=== PATIENT | male | born 1990 | race Caucasian/White ===

== ENCOUNTER 2018-12-23 21:53 | Emergency (ER) | payer OTHER ==
[2018-12-23] MEDS ORDERED: KETOROLAC 30 MG/ML INJ ONE (22:16)
[2018-12-23 22:26] LABS: Absolute Lymphocytes (CBC) 2.7 K/uL (0.7-4.9); Absolute Monocytes 0.5 K/uL (0.1-1.3); Absolute Neutrophil 2.8 K/uL (1.8-8.0); Basophils % 0.6 % (0-1.3); Eosinophils % 1.6 % (0-4.4); Hematocrit 47.3 % (39.6-49.0); Lymphocytes % 44.3 % (15.3-44.8); Monocytes % 7.7 % (3.3-12.3); RBC Red Blood Cell Count 5.67 M/uL (4.33-5.43)
[2018-12-23] MEDS ORDERED: ONDANSETRON 4 MG/2 ML VIAL ONE (22:35)
[2018-12-23] MEDS ORDERED: MORPHINE 4 MG/ML SYR ONE ×2 (22:35→23:22)
[2018-12-23 22:44] LABS: Albumin 4.7 g/dL (3.4-5.0); Bilirubin Direct 0.2 mg/dL (0-0.2); Bilirubin Total 0.6 mg/dL (0.2-1.0); Potassium 3.6 mmol/L (3.5-5.1); Protein, Total 7.9 g/dL (6.4-8.2)
[2018-12-24] MEDS ORDERED: HYDROMORPHONE HCL 1 MG/ML INJ ONE (00:17)
[2018-12-24] MEDS ORDERED: TAMSULOSIN 0.4 MG SR CAP ONE (00:17)
--- NOTE | 2018-12-24 01:07 | ER ---
Nurse's Notes [facility] Name: Drew Shin Age: 28 yrs Sex: Male : 1990 Arrival Date: 12/23/2018 Time: 21:56 Bed 23 Private MD: Diagnosis: Hydronephrosis with renal and ureteral calculous obstruction Presentation: 12/23 22:00 Presenting complaint: Patient states: Sudden onset right flank/back pain. having some la1 pain during the day but not as bad. Transition of care: patient was not received from another setting of care. Onset of symptoms was December 23, 2018. Risk Assessment: Do you want to hurt yourself or someone else? Patient reports no desire to harm self or others. Initial Sepsis Screen: Does the patient meet any 2 criteria? No. Patient's initial sepsis screen is negative. Does the patient have a suspected source of infection? No. Patient's initial sepsis screen is negative. Care prior to arrival: None. 22:00 Method Of Arrival: Ambulatory la1 22:00 Acuity: JANNETH 3 la1 Historical: - Allergies: 22:01 No Known Allergies; la1 - PMHx: 22:01 None; la1 - Immunization history:: Adult Immunizations up to date. - Social history:: Smoking status: Patient/guardian denies using tobacco. - Ebola Screening: : No symptoms or risks identified at this time. Screenin:15 Abuse screen: Denies threats or abuse. Nutritional screening: No deficits noted. tl3 Tuberculosis screening: No symptoms or risk factors identified. Fall Risk None identified. Assessment: 22:15 General: Appears distressed, uncomfortable, slender, well groomed, well developed, well tl3 nourished, Behavior is anxious. Pain: Complains of pain in right flank. Neuro: Level of Consciousness is awake, alert, obeys commands, Oriented to person, place, time, situation, Appropriate for age. Cardiovascular: Patient's skin is warm and dry. Respiratory: Airway is patent Respiratory effort is even, labored, Respiratory pattern is regular, symmetrical. GI: No signs and/or symptoms were reported involving the gastrointestinal system. : Reports pain in right flank(s), urinary frequency. EENT: No signs and/or symptoms were reported regarding the EENT system. Derm: No signs and/or symptoms reported regarding the dermatologic system. Musculoskeletal: No signs and/or symptoms reported regarding the musculoskeletal system. 23:43 Reassessment: Patient appears in no apparent distress at this time. Patient and/or tl3 family updated on plan of care and expected duration. Pain level reassessed. Patient is alert, oriented x 3, equal unlabored respirations, skin warm/dry/pink. 12/24 00:12 Reassessment: Patient and/or family updated on plan of care and expected duration. Pain tl3 level reassessed. Patient is alert, oriented x 3, equal unlabored respirations, skin warm/dry/pink. Cam spoke with pt about CT results, pt still in pain, new orders received. 01:20 Reassessment: patient vomited after i gave the medicine. for discharge once relieved mg2 from pain. Vital Signs: 12/23 22:01 BP 143 / 87; Pulse 101; Resp 18; Temp 97.8; Pulse Ox 98% on R/A; Weight 65.77 kg; la1 Height 6 ft. 3 in. (190.50 cm); 23:43 BP 121 / 72; Pulse 110; Resp 18; Pulse Ox 97% on R/A; tl3 12/24 00:12 BP 140 / 86; Pulse 87; Resp 20; Pulse Ox 100% on R/A; tl3 01:51 BP 132 / 78; Pulse 80; Resp 18; Pulse Ox 100% on R/A; Pain 0/10; mg2 12/23 22:01 Body Mass Index 18.12 (65.77 kg, 190.50 cm) la1 ED Course: 12/23 21:56 Patient arrived in ED. am2 22:01 Triage completed. la1 22:02 Arm band placed on left wrist. la1 22:03 Cam Esteban PA is PHCP. jr8 22:03 Valeriy Malik MD is Attending Physician. jr8 22:15 Amanda Nath, MIRTA is Primary Nurse. tl3 22:15 Patient has correct armband on for positive identification. Bed in low position. Call tl3 light in reach. Adult w/ patient. 22:15 No provider procedures requiring assistance completed. Initial lab(s) drawn, by nh, tl3 sent to lab. Inserted saline lock: 20 gauge in right upper arm, using aseptic technique. Blood collected. 22:43 CT completed. Patient tolerated procedure well. Patient moved back from CT. mw3 23:[address] In Process Unspecified. EDMS 12/24 01:06 Tristian Davis MD is Referral Physician. jr8 01:52 IV discontinued, intact, bleeding controlled, No redness/swelling at site. Pressure mg2 dressing applied. Administered Medications: 12/23 22:18 Drug: TORadol 30 mg Route: IVP; Infused Over: 2 mins; Site: right upper arm; tl3 22:32 Follow up: Response: Pain is unchanged, physician notified tl3 22:31 Drug: morphine 4 mg Route: IVP; Infused Over: 2 mins; Site: right upper arm; tl3 22:33 Follow up: Response: Pain is decreased tl3 22:31 Drug: Zofran 4 mg Route: IVP; Infused Over: 2 mins; Site: right upper arm; tl3 22:32 Follow up: Response: Pain is decreased tl3 23:42 Drug: morphine 4 mg Route: IVP; Infused Over: 2 mins; Site: right upper arm; tl3 23:42 Follow up: Response: Pain is decreased tl3 02 00:10 Drug: Flomax 0.4 mg Route: PO; mg2 01:52 Follow up: Response: No adverse reaction; Marked relief of symptoms mg2 00:10 Drug: Dilaudid 1 mg Route: IVP; Site: right antecubital; mg2 01:51 Follow up: Response: No adverse reaction; Marked relief of symptoms mg2 01:19 Drug: Demerol 50 mg Route: IVP; Site: right antecubital; mg2 01:51 Follow up: Response: No adverse reaction; Marked relief of symptoms mg2 01:19 Drug: Promethazine 12.5 mg Route: IVP; Site: right antecubital; mg2 01:51 Follow up: Response: No adverse reaction; Marked relief of symptoms mg2 Outcome: 01:06 Discharge ordered by . jr8 01:52 Discharged to home ambulatory, with family. mg2 01:52 Condition: improved 01:52 Discharge instructions given to patient, family, Instructed on discharge instructions, follow up and referral plans. medication usage, Demonstrated understanding of instructions, follow-up care, medications, Prescriptions given X 2. 01:52 Patient left the ED. mg2 Signatures: Dispatcher [employer] EDWY Cam Esteban PA PA jr8 Yung Dias RN RN la1 Sarah Munoz am2 Amanda Nath, RN RN tl3 Tae Foy RN RN mg2 Sylvia Peck 3
--- NOTE | 2018-12-24 01:07 | EDPHYS ---
Physician Documentation [facility] Name: Drew Shin Age: 28 yrs Sex: Male : 1990 Arrival Date: 12/23/2018 Time: 21:56 Bed 23 Private MD: ED Physician Valeriy Malik HPI: 12/23 22:42 This 28 yrs old Male presents to ER via Ambulatory with complaints of Flank jr8 Pain, Back Pain. 22:42 The patient complains of pain in the right flank. The pain does not radiate. Onset: The jr8 symptoms/episode began/occurred acutely, today. Modifying factors: The symptoms are alleviated by nothing. the symptoms are aggravated by nothing. Associated signs and symptoms: Pertinent positives: dysuria. Severity of pain: At its worst the pain was moderate in the emergency department the pain is unchanged. The patient has not experienced similar symptoms in the past. The patient has not recently seen a physician. Historical: - Allergies: 22:01 No Known Allergies; la1 - PMHx: 22:01 None; la1 - Immunization history:: Adult Immunizations up to date. - Social history:: Smoking status: Patient/guardian denies using tobacco. - Ebola Screening: : No symptoms or risks identified at this time. ROS: 22:42 Eyes: Negative for injury, pain, redness, and discharge, ENT: Negative for injury, jr8 pain, and discharge, Neck: Negative for injury, pain, and swelling, Cardiovascular: Negative for chest pain, palpitations, and edema, Respiratory: Negative for shortness of breath, cough, wheezing, and pleuritic chest pain, Abdomen/GI: Negative for abdominal pain, nausea, vomiting, diarrhea, and constipation, MS/Extremity: Negative for injury and deformity, Skin: Negative for injury, rash, and discoloration, Neuro: Negative for headache, weakness, numbness, tingling, and seizure. 22:42 Back: Positive for flank pain, on the right. Exam: 22:42 Eyes: Pupils equal round and reactive to light, extra-ocular motions intact. Lids and jr8 lashes normal. Conjunctiva and sclera are non-icteric and not injected. Cornea within normal limits. Periorbital areas with no swelling, redness, or edema. ENT: Nares patent. No nasal discharge, no septal abnormalities noted. Tympanic membranes are normal and external auditory canals are clear. Oropharynx with no redness, swelling, or masses, exudates, or evidence of obstruction, uvula midline. Mucous membranes moist. Neck: Trachea midline, no thyromegaly or masses palpated, and no cervical lymphadenopathy. Supple, full range of motion without nuchal rigidity, or vertebral point tenderness. No Meningismus. Cardiovascular: Regular rate and rhythm with a normal S1 and S2. No gallops, murmurs, or rubs. Normal PMI, no JVD. No pulse deficits. Respiratory: Lungs have equal breath sounds bilaterally, clear to auscultation and percussion. No rales, rhonchi or wheezes noted. No increased work of breathing, no retractions or nasal flaring. Abdomen/GI: Soft, non-tender, with normal bowel sounds. No distension or tympany. No guarding or rebound. No evidence of tenderness throughout. Skin: Warm, dry with normal turgor. Normal color with no rashes, no lesions, and no evidence of cellulitis. MS/ Extremity: Pulses equal, no cyanosis. Neurovascular intact. Full, normal range of motion. Neuro: Awake and alert, GCS 15, oriented to person, place, time, and situation. Cranial nerves II-XII grossly intact. Motor strength 5/5 in all extremities. Sensory grossly intact. Cerebellar exam normal. Normal gait. 22:42 Back: pain, that is moderate, of the right flank, ROM is normal, normal spinal alignment noted, CVA tenderness, that is moderate, is noted on the right, muscle spasm, is not present. Vital Signs: 22:01 BP 143 / 87; Pulse 101; Resp 18; Temp 97.8; Pulse Ox 98% on R/A; Weight 65.77 kg; la1 Height 6 ft. 3 in. (190.50 cm); 23:43 BP 121 / 72; Pulse 110; Resp 18; Pulse Ox 97% on R/A; tl3 03 00:12 BP 140 / 86; Pulse 87; Resp 20; Pulse Ox 100% on R/A; tl3 01:51 BP 132 / 78; Pulse 80; Resp 18; Pulse Ox 100% on R/A; Pain 0/10; mg2 12/23 22:01 Body Mass Index 18.12 (65.77 kg, 190.50 cm) la1 MDM: 12/23 22:03 Patient medically screened. jr8 12/24 00:06 Data reviewed: vital signs, nurses notes, lab test result(s), radiologic studies, CT jr8 scan. Data interpreted: Pulse oximetry: on room air is 97 %. Interpretation: normal. Counseling: I had a detailed discussion with the patient and/or guardian regarding: the historical points, exam findings, and any diagnostic results supporting the discharge/admit diagnosis, lab results, radiology results, the need for outpatient follow up, a urologist, to return to the emergency department if symptoms worsen or persist or if there are any questions or concerns that arise at home. ED course: Patient will do fine for a while after being medicated but once it wears off goes back to 10 out of 10 pain. Will try dilaudid and flomax . 01:05 Response to treatment: the patient's symptoms have mildly improved after treatment. ED jr8 course: Patient feeling well enough to go home. Would come back if worse . 12/23 22:03 Order name: Basic Metabolic Panel; Complete Time: 22:53 jr8 12/23 22:03 Order name: CBC with Diff; Complete Time: 22:41 jr8 12/23 22:03 Order name: Creatinine for Radiology; Complete Time: 22:53 jr8 12/23 22:03 Order name: Hepatic Function; Complete Time: 22:53 jr8 12/23 22:03 Order name: Lipase; Complete Time: 22:53 jr8 12/23 22:03 Order name: Stone Protocol CT jr8 12/23 22:03 Order name: IV Saline Lock; Complete Time: 22:19 jr8 12/23 22:03 Order name: Labs collected and sent; Complete Time: 22:19 jr8 Administered Medications: 12/23 22:18 Drug: TORadol 30 mg Route: IVP; Infused Over: 2 mins; Site: right upper arm; tl3 22:32 Follow up: Response: Pain is unchanged, physician notified tl3 22:31 Drug: morphine 4 mg Route: IVP; Infused Over: 2 mins; Site: right upper arm; tl3 22:33 Follow up: Response: Pain is decreased tl3 22:31 Drug: Zofran 4 mg Route: IVP; Infused Over: 2 mins; Site: right upper arm; tl3 22:32 Follow up: Response: Pain is decreased tl3 23:42 Drug: morphine 4 mg Route: IVP; Infused Over: 2 mins; Site: right upper arm; tl3 23:42 Follow up: Response: Pain is decreased tl3 12/24 00:10 Drug: Flomax 0.4 mg Route: PO; mg2 01:52 Follow up: Response: No adverse reaction; Marked relief of symptoms mg2 00:10 Drug: Dilaudid 1 mg Route: IVP; Site: right antecubital; mg2 01:51 Follow up: Response: No adverse reaction; Marked relief of symptoms mg2 01:19 Drug: Demerol 50 mg Route: IVP; Site: right antecubital; mg2 01:51 Follow up: Response: No adverse reaction; Marked relief of symptoms mg2 01:19 Drug: Promethazine 12.5 mg Route: IVP; Site: right antecubital; mg2 01:51 Follow up: Response: No adverse reaction; Marked relief of symptoms mg2 Disposition: 20:17 Co-signature as Attending Physician, Valeriy Malik MD. Disposition: 12/24/18 01:06 Discharged to Home. Impression: Hydronephrosis with renal and ureteral calculous obstruction. - Condition is Stable. - Discharge Instructions: Kidney Stones, Hydronephrosis. - Prescriptions for Tylenol- Codeine #3 300-30 mg Oral Tablet - take 2 tablets by ORAL route every 6 hours As needed; 20 tablet. Flomax 0.4 mg Oral Capsule, Sust. Release 24 hr - take 1 capsule by ORAL route once daily 1/2 hour following the same meal each day; 30 capsule. - Medication Reconciliation Form, Thank You Letter, Antibiotic Education, Prescription Opioid Use form. - Follow up: Tristian Davis MD; When: 2 - 3 days; Reason: Recheck today's complaints, Continuance of care, Re-evaluation by your physician. - Problem is new. - Symptoms have improved. Signatures: Dispatcher [employer] EDMS Cam Esteban PA PA jr8 Yung Dias RN RN la1 Valeriy Malik MD MD Amanda Nath RN RN tl3 Tae Foy RN RN mg2 Corrections: (The following items were deleted from the chart) 01:52 01:06 12/24/2018 01:06 Discharged to Home. Impression: Hydronephrosis with renal and mg2 ureteral calculous obstruction. Condition is Stable. Forms are Medication Reconciliation Form, Thank You Letter, Antibiotic Education, Prescription Opioid Use. Follow up: Tristian Davis; When: 2 - 3 days; Reason: Recheck today's complaints, Continuance of care, Re-evaluation by your physician. Problem is new. Symptoms have improved. jr8
[2018-12-24] MEDS ORDERED: MEPERIDINE HCL 50 MG/ML AMP ONE (01:22)
[2018-12-24] MEDS ORDERED: PROMETHAZINE 25 MG/ML VIAL ONE (01:22)
--- NOTE | 2018-12-25 10:07 | RAD REPORT ---
EXAM DESCRIPTION: Stone Protocol CLINICAL HISTORY: 28 years male FLANK PAIN. COMPARISON: None TECHNIQUE: Images obtained in axial, sagittal, and coronal planes. No oral or intravenous contrast w as administered. This exam was performed according to our departmental dose-optimization program, which includes autom ated exposure control, adjustment of the mA and/or kV according to patient size and/or less of iterat kalen reconstruction technique. FINDINGS: 2 mm calculus distal right ureter with associated mild right hydronephrosis and hydrourete r. Additional punctate nonobstructing calcification superior right kidney. No obstructing renal calcifications on the left. No hydronephrosis on the left. Unremarkable bladder. No abnormality involving the liver, pancreas, gallbladder or adrenal glands bilaterally. Spleen is pr ominent in size measuring 12.4 cm in greatest dimension. Appendix not well identified however no secondary signs for appendicitis. No bowel obstruction, perfo ration, or inflammation. Punctate densities within bowel possibly related to ingested medication. It is known abnormality lower lungs bilaterally. No dilatation of the abdominal aorta. No adenopathy or abnormal fluid collection is seen. IMPRESSION: Punctate calculus distal right ureter just proximal to the ureterovesicular junction. Associated mild right hydronephrosis and hydroureter. Additional punctate nonobstructing calcifications superior right kidney. No additional abnormality is seen. Electronically signed by: Kaylyn eRynoso MD 12/23/2018 11:44 PM GENERAL ACCOUNTING CLERK Due to temporary technical issues with the PACS/Fluency reporting system, reports are being signed by the in house radiologist as a courtesy to ensure prompt reporting. The interpreting radiologist is f ully responsible for the content of the report.
== END 2018-12-24 01:52 | disposition home or self-care (01) ==
LOC: ER 21:53
DX: N13.2 Hydronephrosis with renal and ureteral calculous obstruction (principal)
CPT/HCPCS: 36415; 74176; 76377; 80048; 80076; 83690; 85025; 99284; J1170; J2175; J2405; J2550

== ENCOUNTER 2020-08-19 23:44 | Emergency (ER) | payer BC, SELFPAY ==
--- OUTSIDE RECORDS SUMMARY | 2020-08-19 23:46 | XMS REPORT | Clinical Summary ---
:1990 Author Organization [facility] Address [address] [place] [address] Care Team Providers Name Role Phone Asked, No Pcp Primary Care Provider Unavailable Allergies No Known Active Allergies Medications Not on file Active Problems Not on file Social History Tobacco Use Types Packs/Day Years Used Date Never Smoker Smokeless Tobacco: Never Used Sex Assigned at Date Recorded Not on file Last Filed Vital Signs Not on file Plan of Treatment Health Maintenance Due Date Last Done Comments INFLUENZA VACCINE 06/21/2020 Results Not on fileafter 08/19/2019 Insurance Payer Benefit Plan / Subscriber ID Effective Phone Address T ype Group Dates COMMERCIAL MISC MISC COMMERCIAL [id number] 2018-Prese Commercial nt Advance Directives For more information, please contact: [phone] Type Date Recorded Patient Pediatric Oncologist Explanati on Advance Directives, Living Will and Medical Power of Headend Technician Advance Directives, Living Will 05/28/2019 1:33 PM and Medical Power of Headend Technician Advance Directives, Living Will 05/28/2019 1:44 PM and Medical Power of Headend Technician
--- OUTSIDE RECORDS SUMMARY | 2020-08-19 23:46 | XMS REPORT | Continuity of Care Document ---
:1990 Author Organization [facility] t Address [address] [place] [address] Care Team Providers Name Role Phone Asked, Pcp Primary Care Physician Unavailable Doctor Unassigned, Name Attending Clinician Unavailable Patrick MCMAHON Attending Clinician Problems This patient has no known problems. Allergies, Adverse Reactions, Alerts This patient has no known allergies or adverse reactions. Social History Social Habit Start Date Stop Date Quantity Comments Source Sex Assigned At [facility] ethodist Tobacco use and 2019-05-28 2019-05-28 Never used [facility] ethodist exposure 00:00:00 00:00:00 Smoking Status Start Date Stop Date Source Never smoker [facility] Medications This patient has no known medications. Procedures This patient has no known procedures. Plan of Care Planned Activity Planned Date Details Comments Source Future Scheduled 2020-06-21 INFLUENZA VACCINE Joshua Soriano Test 00:00:00 [code = INFLUENZA VACCINE] Encounters Start End Encounter Admission Attending Care Care Encounter Source Date/Time Date/Time Type Type Clinicians Facility Department ID 2020-06-10 2020-06-10 Orders Doctor GEETHA [id number] 00:00:00 00:00:00 Only Unassigned, DUSTY [id number] [place] [facility] [id number] 2020-06-09 2020-06-09 [facility] [id number] 10:24:29 10:54:29 ne Visit [facility] [id number] [facility] [id number] 2020-04-28 2020-04-28 [facility] [id number] 00:00:00 00:00:00 [facility] [id number] [facility] [id number] Results This patient has no known results.
--- OUTSIDE RECORDS SUMMARY | 2020-08-19 23:47 | XMS REPORT | Summary of Care ---
:1990 Author Organization [facility] - Health Address [address] [place] [address] Care Team Providers Name Role Phone LaverneEriberto Primary Care Provider Encounter Details Date Type Department Care Team Description 06/10/2020 Orders Only [facility] Doctor Unassigned, No [address] [facility] [place] [address] [address] [place] [address] Allergies No Known Allergiesdocumented as of this encounter (statuses as of 06/19/2020) Medications Medication Sig Dispensed Refills Start Date End Date Status dutasteride 0.5 mg Take 1 capsule 0 03/13/2019 Active capsule by mouth daily. [id number] Take 1 tablet 30 tablet 11 01/04/2020 Active v ala (BIKTARVY) by mouth daily. 50-200-25 mg Take on tabletIndications: HIV 50/200/25 mg (human immunodeficiency tablet once virus infection) daily predniSONE 20 mg 2 tabs once 10 tablet 0 06/09/2020 Active tabletIndications: daily x 5 days Allergic reaction to bee sting temazepam 15 mg capsule TK 1 C PO QD HS 0 05/21/2020 Active documented as of this encounter (statuses as of 06/19/2020) Active Problems Problem Noted Date HIV (human immunodeficiency virus infection) 9 documented as of this encounter (statuses as of 06/19/2020) Immunizations Name Administration Dates Next Due Influenza Virus Vaccine 08/02/2019 Pneumococcal 13 Conjugate, PCV13 (Prevnar 13) 03/27/2019 documented as of this encounter Social History Tobacco Use Types Packs/Day Years Used Date Never Smoker Smokeless Tobacco: Never Used Alcohol Use Drinks/Week oz/Week Comments Yes 0 Standard drinks or equivalent 0.0 Sex Assigned at Date Recorded Not on file Job Start Date Occupation Industry Not on file Not on file Not on file Travel History Travel Start Travel End No recent travel history available. documented as of this encounter Last Filed Vital Signs Not on filedocumented in this encounter Plan of Treatment Date Type Specialty Care Team Description 12/15/2020 Office Visit [facility] [address] [place], [place] [address] Health Maintenance Due Date Last Done Comments VARICELLA VACCINES (1 of 2 - 2-dose childhood series) 1991 DTaP,Tdap,and Td Vaccines (1 - Tdap) 2001 PNEUMOCOCCAL 0-64 YEARS COMBINED SERIES (2 of 3 - 05/22/2019 03/27/2019 PPSV23) INFLUENZA VACCINE (#1) 2020 08/02/2019 Depression Screening 01/04/2021 01/04/2020 documented as of this encounter Procedures Procedure Name Priority Date/Time Associated Diagnosis Comme nts REFERRAL- Routine 06/10/2020 12:01 AM CDT REQUEST/RESPONSE documented in this encounter Results Not on filedocumented in this encounter Insurance Payer Benefit Plan / Subscriber ID Effective Dates Phone Addre ss Type Group BCBS OF HIM BCBS BLUE [id number] 2019-Barrie [phone] [address] [facility] t [id number] [place] [address] documented as of this encounter
--- OUTSIDE RECORDS SUMMARY | 2020-08-19 23:47 | XMS REPORT | Summary of Care ---
:1990 Author Organization [facility] Address [address] [place] [id number] Care Team Providers Name Role Phone Eriberto Galloway Primary Care Provider Reason for Visit Reason Comments HIV Encounter Details Date Type Department Care Team Description 06/09/2020 Telemedicine Visit [facility] Allergi c reaction to Infectious Diseases- PA bee sting (Primary [address] Dx) [facility] [id number] [address] [place] [address] [address] [place], [place] [phone] Allergies No Known Allergiesdocumented as of this encounter (statuses as of 06/09/2020) Medications Medication Sig Dispensed Refills Start Date End Date Status dutasteride 0.5 mg Take 1 0 03/13/2019 Active capsule capsule by mouth daily. jsvftxuwg-clyltprk-fzr Take 1 30 tablet 11 01/04/2020 Active ofov ala (BIKTARVY) tablet by 50-200-25 mg mouth daily. tabletIndications: HIV Take on (human 50/200/25 mg immunodeficiency virus tablet once infection) daily predniSONE 20 mg 2 tabs once 10 tablet 0 06/09/2020 Active tabletIndications: daily x 5 Allergic reaction to days bee sting temazepam 15 mg TK 1 C PO QD 0 05/21/2020 Active capsule HS methylphenidate HCl Take 1 0 03/13/2019 Discontinued (RITALIN LA) 10 mg 24 capsule by 0 hr capsule mouth every morning. eszopiclone (LUNESTA) Take 1 0 03/13/2019 02 Discontinued 3 mg tablet tablet by 0 mouth at bedtime. metoclopramide HCl 10 1 tab every 30 tablet 0 12/16/201906/09 Discontinued mg tabletIndications: 4hr as 0 Vomiting in adult needed for nausea QUEtiapine (SEROQUEL) Take 50 mg 0 02 Discontinued 50 mg tablet by mouth at 0 bedtime. diazePAM 10 mg tablet Take 10 mg 0 02 Discontinued by mouth at 0 bedtime. temazepam 15 mg Take 1 30 capsule 2 06/09/2020 Di scontinued capsule capsule by 0 mouth at bedtime as needed for Insomnia. documented as of this encounter (statuses as of 06/09/2020) Active Problems Problem Noted Date HIV (human immunodeficiency virus infection) 9 documented as of this encounter (statuses as of 06/09/2020) Immunizations Name Administration Dates Next Due Influenza [...] Signs Not on filedocumented in this encounter Progress Notes Reed Nguyen PA - 06/09/2020 4:00 PM CDT TELEHEALTH NOTE Verbal consent obtained from Patient: Drew Shin due to the COVID-19 pandemic for telehealth services provided below. Communication with patient was conducted via Video Call. Location of Patient: Home Location of Provider: Office Date of Service: 06/09/2020 Chief Complaint: HIV scheduled visit HPI: Drew Shin is a 29 year old WM who presents today for a HIV telehealth visit. He states that is very allergic to poison sole and bee sting. Two days ago, he suffered a bee sting on his left lateral knee area and subsequently developed a large area of swelling, redness and warmth x 2 days. D enies having fevers, chills or sweats. In the past, he has received steroid shots in the past for similar reactions. Denies having feeling more SOB than he has been having for the last few months In early January, he developed self limiting cough. At that time he did not have fever, chills, musclecaches, diarrhea, or lost of sense of smell or taste. He developed mild TRAVIS that has improved but has not returned to his baseline. Denies having CP, sore throat, wheezing, edema Albuterol prescribed in the past for similar sx and he has been using it periodically and it has helped He a long h/o of insomnia and has tried multiple medications including trazodone and Seroquel. He has been prescribed temazepam 15 mg - it still takes him a few hours to go to sleep after taking it andmelatonin. Mood is stable. Does not fill anxious. He is not taking any stimulants for ADHD. Avoid caffeine. Hasgood sleep hygiene habits. 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 Denies having sore throat, abd pain, nausea, vomiting, diarrhea, + rash )bee sting), RAHAT, paresthesias, + joint occasionaly TELEHEALTH EXAM Gen: alert, very pleasant, nl speech ENT: without overt scleral icterus Resp: breathing comfortably Laboratory [facility] 04/28/20 HIV-1 RNA quant RT PCR = < 20 copy clerk/ml CD4 = 626 (35%) BUN/[employer] [place] Marshal = 18/1.17 eGFR = 84 ml/min/1.73m2 Glucose = 82 Total bili = 1.6 AST = 16 ALT = 11 ASSESSMENT/ PLAN Drew Shin is a 29 year old male with PMH as above presenting with: 1. HIV+ - he started Biktarvy on 03/13/19. Baseline/pre-tx CD4 and VL were 394 (25%) and 65,037 copy clerk/ml, respectively - continue Biktarvy 2. Sleep disorder - chronic prior to being diagnosed with HIV - continue temazepam 15 mg (prescribed but out side provider) - patient declined referral to [facility] psychiatry due to drive 3. Increase total bilirubin (mild) - possible Gilbert syndrome 4. Healthcare maintenance - HBsAb (+) - Influenza 08/09 - Prevnar 05/09 - offer Pneumovax and TdAP on RTC - on RTC, ask patient if he recalls having Gardasil in the past 5. Adverse reaction to bee sting - skin swelling and erythema - prednisone 40 mg daily x 5 days RTC 6 months A total of 45 minutes was spent on the Video Call, chart review, and coordination of care with specialists. Reed Nguyen PA-C documented in this encounter Plan of Treatment Health Maintenance Due Date Last Done Comments VARICELLA VACCINES (1 of 2 - 2-dose childhood series) 1991 DTaP,Tdap,and Td Vaccines (1 - Tdap) 2001 PNEUMOCOCCAL 0-64 YEARS COMBINED SERIES (2 of 3 - 05/22/2019 03/27/2019 PPSV23) INFLUENZA VACCINE (#1) 2020 08/02/2019 Depression Screening 01/04/2021 01/04/2020 documented as of this encounter Results Not on filedocumented in this encounter Visit Diagnoses Diagnosis Allergic reaction to bee sting - Primary Toxic effect of venom documented in this encounter Insurance Payer Benefit Plan / Subscriber ID Effective Dates Phone Addre ss Type Group BCBS OF HIM BCBS BLUE [id number] 2019-Barrie [phone] [address] [facility] t [id number] [place] [address] documented as of this encounter
[2020-08-20] MEDS ORDERED: FLUORESCEIN SODIUM 1 MG/WRAP ONE (00:08)
[2020-08-20] MEDS ORDERED: TETRACAINE HCL 0.5% 4ML OPTH ONE (00:08)
--- NOTE | 2020-08-20 00:17 | ER ---
Nurse's Notes [facility] Name: Drew Shin Age: 29 yrs Sex: Male : 1990 Arrival Date: 08/19/2020 Time: 23:47 Bed 6 Private MD: Eriberto Galloway Diagnosis: Injury of conjunctiva and corneal abrasion without foreign body, left eye Presentation: 08/19 23:53 Chief complaint: Patient states: Left eye pain, reports while weed-eating a rock or sg piece of debris hit the left eye, reports feels like the eye is scratched. Coronavirus screen: Client denies travel out of the [place] in the last 14 days. At this time, the client does not indicate any symptoms associated with coronavirus-19. Ebola Screen: Patient negative for fever greater than or equal to 101.5 degrees Fahrenheit, and additional compatible Ebola Virus Disease symptoms Patient denies exposure to infectious person. Patient denies travel to an Ebola-affected area in the 21 days before illness onset. No symptoms or risks identified at this time. Mechanism of Injury: No Mechanism of Injury. The patient denies any loss of vision. Initial Sepsis Screen: Does the patient meet any 2 criteria? No. Patient's initial sepsis screen is negative. Risk Assessment: Do you want to hurt yourself or someone else? Patient reports no desire to harm self or others. Onset of symptoms was August 19, 2020. Care prior to arrival: None. Transition of care: patient was not received from another setting of care. 23:53 Method Of Arrival: Ambulatory sg 23:53 Acuity: JANNETH 4 sg 23:53 Initial Sepsis Screen: Does the patient have a suspected source of infection? No. rr5 Patient's initial sepsis screen is negative. Historical: - Allergies: 23:53 No Known Allergies; sg - Home Meds: 23:53 None [Active]; sg - PMHx: 23:53 None; sg - PSHx: 23:53 None; sg - Immunization history:: Adult Immunizations up to date. - Social history:: Smoking status: Patient denies any tobacco usage or history of. Screenin/30 00:04 Abuse screen: Denies threats or abuse. Denies injuries from another. Nutritional rr5 screening: No deficits noted. Tuberculosis screening: No symptoms or risk factors identified. Fall Risk None identified. Total Prieto Fall Scale indicates No Risk (0-24 pts). Assessment: 00:00 General: Appears in no apparent distress. uncomfortable, Behavior is calm, cooperative, rr5 appropriate for age. Pain: Complains of pain in left eye Pain currently is 6 out of 10 on a pain scale. Quality of pain is described as aching, Pain began suddenly, Is intermittent. Neuro: Level of Consciousness is awake, alert, obeys commands, Oriented to person, place, time, situation. Cardiovascular: Capillary refill < 3 seconds Patient's skin is warm and dry. Respiratory: Airway is patent Respiratory effort is even, unlabored, Respiratory pattern is regular, symmetrical. GI: No signs and/or symptoms were reported involving the gastrointestinal system. : No signs and/or symptoms were reported regarding the genitourinary system. EENT: Eyes mild redness. Sclera/Cornea are reddened in outer aspect of conjuctiva of left eye and inner aspect of conjunctiva of left eye Reports pain in left eye. Derm: Skin is intact, is healthy with good turgor, Skin temperature is warm. Musculoskeletal: Circulation, motion, and sensation intact. Capillary refill < 3 seconds. Vital Signs: 08/19 23:53 BP 144 / 88; Pulse 60; Resp 16; Temp 98.5; Pulse Ox 100% ; Weight 65.77 kg; Height 6 rr5 ft. 2 in. (187.96 cm); Pain 6/10; 08/20 00:31 BP 136 / 86; Pulse 70; Resp 18; Temp 98; Pulse Ox 100% on R/A; mg2 08/19 23:53 Body Mass Index 18.62 (65.77 kg, 187.96 cm) rr5 Visual Acuity: 00:00 Left Eye Visual acuity 20/20, ; Right Eye Visual acuity 20/20, ; Both Eyes Visual rr5 acuity 20/20; Without Lenses; ED Course: 08/19 23:47 Patient arrived in ED. am2 23:48 Eriberto Galloway MD is Private Physician. am2 23:50 Jose Vasquez PA is PHCP. cp 23:50 Tremaine Dee MD is Attending Physician. cp 23:51 Tae Foy RN is Primary Nurse. mg2 23:52 Arm band placed on. sg 23:54 Triage completed. sg 23:55 Patient has correct armband on for positive identification. Bed in low position. Call rr5 light in reach. 08/20 00:15 Kaylyn Lomas MD is Referral Physician. cp 00:20 Assist provider with eye exam of left eye. using fluorescein stain, Performed by Jose MCMAHON Patient tolerated well. Patient did not have IV access during this emergency room visit. Administered Medications: 00:05 Drug: Tetracaine Drops 0.5 % 1 drops {Note: given by tay MCMAHON.} Route: Ophthalmic; Site: rr5 left eye; 00:27 Drug: Gentamicin Drops 0.3 % 2 drops Route: Ophthalmic; Site: left eye; mg2 00:27 Follow up: Response: No adverse reaction; Medication administered at discharge. mg2 00:27 Drug: Ibuprofen 800 mg Route: PO; mg2 00:27 Follow up: Response: No adverse reaction; Medication administered at discharge. mg2 00:27 Drug: Tylenol 650 mg Route: PO; mg2 00:27 Follow up: Response: No adverse reaction; Medication administered at discharge. mg2 Outcome: 00:16 Discharge ordered by MD. cp 00:31 Discharged to home ambulatory. mg2 00:31 Condition: stable 00:31 Discharge instructions given to patient, Instructed on discharge instructions, follow up and referral plans. medication usage, Demonstrated understanding of instructions, follow-up care, medications, Prescriptions given X 2. 00:31 Patient left the ED. mg2 Signatures: Dawit Farley RN Jose Pinto PA PA cp Moreno, Amanda am2 Tae Foy RN RN mg2 Eusebio Hunt RN RN rr5
--- NOTE | 2020-08-20 00:17 | EDPHYS ---
Physician Documentation [facility] Name: Drew Shin Age: 29 yrs Sex: Male : 1990 Arrival Date: 08/19/2020 Time: 23:47 Bed 6 Private MD: Eriberto Galloway ED Physician Tremaine Dee HPI: 08/19 23:57 This 29 yrs old Male presents to ER via Ambulatory with complaints of Eye cp Pain. 23:57 The patient is experiencing foreign body sensation, pain, The patient sustained struck cp by rock while using weed eater, to the left eye. Historical: - Allergies: 23:53 No Known Allergies; sg - Home Meds: 23:53 None [Active]; sg - PMHx: 23:53 None; sg - PSHx: 23:53 None; sg - Immunization history:: Adult Immunizations up to date. - Social history:: Smoking status: Patient denies any tobacco usage or history of. ROS: 23:58 Eyes: Positive for foreign body sensation, pain, of the left eye, Negative for cp discharge, vision loss. 23:58 Skin: Negative for rash. 23:58 Neuro: Negative for headache. 23:58 All other systems are negative. Exam: 08/20 00:11 Visual Acuity: I have reviewed the nursing documentation. cp Head/Face: Normocephalic, atraumatic. Constitutional: The patient appears in no acute distress, alert, awake, well developed, well nourished, uncomfortable. Eyes: Periorbital structures: appear normal, Pupils: equal, round, and reactive to light and accomodation, Extraocular movements: intact throughout, Conjunctiva: normal, no exudate, no injection, Corneas: abrasion, that is small, on the left, central location, foreign body, is not appreciated, a fluorescein strip employed to appreciate the findings, Lids and lashes: appear normal, bilaterally, Visual armires: are intact, Examination of the other eye reveals no obvious gross abnormality. ENT: External ear(s): are unremarkable, Nose: is normal, Posterior pharynx: Airway: no evidence of obstruction, patent. Chest/axilla: Inspection: normal. Cardiovascular: Rate: normal. Skin: no rash present. Vital Signs: 08/19 23:53 BP 144 / 88; Pulse 60; Resp 16; Temp 98.5; Pulse Ox 100% ; Weight 65.77 kg; Height 6 rr5 ft. 2 in. (187.96 cm); Pain 6/10; 08/20 00:31 BP 136 / 86; Pulse 70; Resp 18; Temp 98; Pulse Ox 100% on R/A; mg2 08/19 23:53 Body Mass Index 18.62 (65.77 kg, 187.96 cm) rr5 Visual Acuity: 00:00 Left Eye Visual acuity 20/20, ; Right Eye Visual acuity 20/20, ; Both Eyes Visual rr5 acuity 20/20; Without Lenses; MDM: 08/19 23:53 Patient medically screened. cp 08/20 00:14 Differential diagnosis: Corneal abrasion of left eye. Foreign body in left eye. cp Infectious conjunctivitis in left eye. Data reviewed: vital signs, nurses notes. Counseling: I had a detailed discussion with the patient and/or guardian regarding: the historical points, exam findings, and any diagnostic results supporting the discharge/admit diagnosis, the need for outpatient follow up, an opthalmologist, to return to the emergency department if symptoms worsen or persist or if there are any questions or concerns that arise at home. Response to treatment: the patient's symptoms have markedly improved after treatment, and as a result, I will discharge patient. 08/19 23:54 Order name: Visual Acuity; Complete Time: 00:00 cp 08/19 23:54 Order name: Eye Tray; Complete Time: 00:00 cp 08/19 23:54 Order name: Fluoresene Opth strip; Complete Time: 00:00 cp Administered Medications: 00:05 Drug: Tetracaine Drops 0.5 % 1 drops {Note: given by tay MCMAHON.} Route: Ophthalmic; Site: rr5 left eye; 00:27 Drug: Gentamicin Drops 0.3 % 2 drops Route: Ophthalmic; Site: left eye; mg2 00:27 Follow up: Response: No adverse reaction; Medication administered at discharge. mg2 00:27 Drug: Ibuprofen 800 mg Route: PO; mg2 00:27 Follow up: Response: No adverse reaction; Medication administered at discharge. mg2 00:27 Drug: Tylenol 650 mg Route: PO; mg2 00:27 Follow up: Response: No adverse reaction; Medication administered at discharge. mg2 Disposition: 00:18 Chart complete. cp 01:30 Co-signature as Attending Physician, Tremaine Dee MD. rn Disposition: 08/20/20 00:16 Discharged to Home. Impression: Injury of conjunctiva and corneal abrasion without foreign body, left eye. - Condition is Stable. - Discharge Instructions: Corneal Abrasion. - Prescriptions for Gentamicin 0.3 % Ophthalmic Drops - instill 1 drop by OPHTHALMIC route every 4 hours for 7 days instill eye drops while awake as directed; 1 bottle. Ibuprofen 800 mg Oral Tablet - take 1 tablet by ORAL route every 8 hours As needed take with food; 30 tablet. - Medication Reconciliation Form, Thank You Letter, Antibiotic Education, Prescription Opioid Use form. - Follow up: Kaylyn Lomas MD; When: 1 - 2 days; Reason: Recheck today's complaints. - Problem is new. - Symptoms have improved. Signatures: Dawit Farley RN RN Tremaine Funes MD MD rn Jose Vasquez PA PA cp Tae Foy, RN RN mg2 Eusebio Hunt RN RN rr5 Corrections: (The following items were deleted from the chart) 00:31 00:16 08/20/2020 00:16 Discharged to Home. Impression: Injury of conjunctiva and mg2 corneal abrasion without foreign body, left eye. Condition is Stable. Forms are Medication Reconciliation Form, Thank You Letter, Antibiotic Education, Prescription Opioid Use. Follow up: Kaylyn Lomas; When: 1 - 2 days; Reason: Recheck today's complaints. Problem is new. Symptoms have improved. cp
[2020-08-20] MEDS ORDERED: GENTAMICIN 0.3% OPTH DROP 5ML ONE (00:36)
[2020-08-20] MEDS ORDERED: ACETAMINOPHEN 325 MG TABLET ONE (00:36)
[2020-08-20] MEDS ORDERED: IBUPROFEN 400 MG TAB ONE (00:37)
[2020-08-20 00:52] VITALS: O2SAT 100
[2020-08-20 00:54] VITALS: BP 136/86; TEMP 98
== END 2020-08-20 00:31 | disposition home or self-care (01) ==
LOC: ER 23:44
DX: S05.02XA Injury of conjunctiva and corneal abrasion without foreign body, left eye, initial encounter (principal); W22.8XXA Striking against or struck by other objects, initial encounter; Y93.H9 Activity, other involving exterior property and land maintenance, building and construction; Y92.9 Unspecified place or not applicable
CPT/HCPCS: 99283

== ENCOUNTER 2020-09-14 13:51 | Emergency (ER) | payer BC ==
--- OUTSIDE RECORDS SUMMARY | 2020-09-14 13:53 | XMS REPORT | Continuity of Care Document ---
:1990 Author Organization [facility] t Address [address] [place] [address] Care Team Providers Name Role Phone Asked, Pcp Primary Care Physician Unavailable [facility] Attending Clinician Unavailable Doctor Unassigned, Name Attending Clinician Unavailable Patrick MCMAHON Attending Clinician Problems This patient has no known problems. Allergies, Adverse Reactions, Alerts This patient has no known allergies or adverse reactions. Social History Social Habit Start Date Stop Date Quantity Comments Source Sex Assigned At [facility]ist Tobacco use and 2019-05-28 2019-05-28 Never used [facility] exposure 00:00:00 00:00:00 Smoking Status Start Date Stop Date Source Never smoker [facility] Medications This patient has no known medications. Procedures This patient has no known procedures. Plan of Care Planned Activity Planned Date Details Comments Source Future Scheduled 2020-06-21 INFLUENZA VACCINE Joshua Soriano Test 00:00:00 [code = INFLUENZA VACCINE] Encounters Start End Encounter Admission Attending Care Care Encounter Source Date/Time Date/Time Type Type Clinicians Facility Department ID 2020-09-12 2020-09-12 Technical Trainer [facility] [id number] 15:49:25 15:52:33 Visit HEALTH [id number] CLINICS [id number] 2020-09-12 2020-09-12 Orders Doctor INIGUEZ [id number] 00:00:00 00:00:00 Only Unassigned, DUSTY [id number] [facility] [id number] 2020-06-10 2020-06-10 Orders Doctor GEETHA [id number] 00:00:00 00:00:00 Only Unassigned, DUSTY [id number] [facility] [id number] 2020-06-09 2020-06-09 [address] [id number] 10:24:29 10:54:29 ne Visit [facility] [id number] CLINICS [id number] 2020-04-28 2020-04-28 [id number] 00:00:00 00:00:00 [facility] [id number] [place] [id number] Results This patient has no known results.
--- OUTSIDE RECORDS SUMMARY | 2020-09-14 13:53 | XMS REPORT | Summary of Care ---
:1990 Author Organization [facility] Address [address] [place] [address] Care Team Providers Name Role Phone Eriberto Galloway Primary Care Provider Reason for Visit Reason Comments LAB WORK Encounter Details Date Type Department Care Team Description 09/12/2020 Service Electrician Visit [facility], SALOME [place] [address] [facility] [id number] [place] [address] Symptomatic HIV infection; Laboratory - [facility], [facility] Urinary frequency [place] [address] [place] [address] [address] [place] [address] [place] [address] Allergies No Known Allergiesdocumented as of this encounter (statuses as of 09/12/2020) Medications Medication Sig Dispensed Refills Start Date End Date Status dutasteride 0.5 mg Take 1 capsule 0 03/13/2019 Active capsule by mouth daily. fgbfcjyum-opggupcq-mlfeeu Take 1 tablet 30 tablet 11 01/04/2020 [...] as of this encounter (statuses as of 09/12/2020) Active Problems Problem Noted Date HIV (human immunodeficiency virus infection) 9 documented as of this encounter (statuses as of 09/12/2020) Immunizations Name Administration Dates Next Due Influenza Virus Vaccine 08/22/2020, 08/02/2019 Pneumococcal 13 Conjugate, PCV13 (Prevnar 13) 03/27/2019 documented as of this encounter Social History Tobacco Use Types Packs/Day Years Used Date Never Smoker Smokeless Tobacco: Never Used Alcohol Use Drinks/Week oz/Week Comments Yes 0 Standard drinks or equivalent 0.0 Sex Assigned at Date Recorded Not on file COVID-19 Exposure Response Date Recorded In the last month, have you been in contact with No / Unsure 09/12/2020 2:28 PM CDT someone who was confirmed or suspected to have Coronavirus / COVID-19? documented as of this encounter Last Filed Vital Signs Not on filedocumented in this encounter Nursing Notes Princess Chata Morejon - 09/12/2020 4:00 PM CDT Venipuncture collection performed by clean technique on the right anticubitus. Total of 1 attempts were made. Slight pressure and a bandage/dressing were applied to the site(s). The patient experiencedno complications. The following specimens were processed according to instructions and sent to [facility] laboratories per lab order on 09/12/2020: LT BLUE SST 1 RED LAV 1 PPT 1 DK GREEN (LiHep) DK GREEN (SodH) PINEDA DK BLUE (K2) DK BLUE (S) ACD Blood Culture NIPT/NTD Urine cup sent to lab for UA/C Urine/ GC Chlamydia documented in this encounter Plan of Treatment Date Type Specialty Care Team Description 12/15/2020 Office Visit [facility] [address] [place] [id number] Name Type Priority Associated Diagnoses Date/Ti me HIV1 BY REAL-TIME PCR LAB Routine Symptomatic HIV inf ection 09/12/2020 3:57 PM QUANT CDT CBC WITH DIFF LAB Routine Symptomatic HIV infection 1 3:57 PM CDT COMP. METABOLIC PANEL LAB Routine Symptomatic HIV inf ection 09/12/2020 3:57 PM (33150) CDT URINE CULTURE LAB Routine Urinary frequency 0 3:59 PM CDT GC & CHLAMYDIA AMPLIFIED LAB Routine Urinary frequenc y 09/12/2020 3:59 PM ASSAY CDT URINALYSIS LAB Routine Urinary frequency 09/12/2020 3:59 PM CDT PHOSPHORUS LAB Routine Urinary frequency 09/12/2020 3:57 PM CDT URIC ACID LAB Routine Urinary frequency 09/12/2020 3:57 PM CDT Health Maintenance Due Date Last Done Comments VARICELLA VACCINES (1 of 2 - 1991 2-dose childhood series) DTaP,Tdap,and Td Vaccines (1 - 2009 Tdap) PNEUMOCOCCAL 0-64 YEARS COMBINED 05/22/2019 03/27/2019 SERIES (2 of 3 - PPSV23) Depression Screening 01/04/2021 01/04/2020 INFLUENZA VACCINE (#1) 2021 08/02/2019 Postponed from 07/22/2020 (Refused) documented as of this encounter Results Not on filedocumented in this encounter Visit Diagnoses Diagnosis Symptomatic HIV infection Human immunodeficiency virus [HIV] disea se Urinary frequency documented in this encounter Insurance Payer Benefit Plan / Subscriber ID Effective Dates Phone Addre ss Type Group BCBS OF HIM BCBS BLUE [id number] 2019-Barrie [phone] [address] [facility] t [id number] [place] [address] documented as of this encounter
--- OUTSIDE RECORDS SUMMARY | 2020-09-14 13:53 | XMS REPORT | Summary of Care ---
:[address] [facility] - Health Address [address] [place] [address] Care Team Providers Name Role Phone ZaheerramakrishnaEriberto naylor Primary Care Provider Encounter Details Date Type Department Care Team Description 09/12/[address] [facility] Doctor Unassigned, No [address] [facility] [place] [address] [address] [id number] Allergies No Known Allergiesdocumented as of this encounter (statuses as of 09/12/2020) Medications Medication Sig Dispensed Refills Start Date End Date Status dutasteride 0.5 mg Take 1 capsule 0 03/13/2019 Active capsule by mouth daily. zlemmsppj-voslagob-[id number] Take 1 tablet 30 tablet 11 01/04/2020 [...] [facility] [address] [place], [place] [address] Health Maintenance Due Date Last Done Comments VARICELLA VACCINES (1 of 2 - 2-dose childhood series) 1991 DTaP,Tdap,and Td Vaccines (1 - Tdap) 2009 PNEUMOCOCCAL 0-64 YEARS COMBINED SERIES (2 of 3 - 05/22/2019 03/27/2019 PPSV23) INFLUENZA VACCINE (#1) 2020 08/02/2019 Depression Screening 01/04/2021 01/04/2020 documented as of this encounter Procedures Procedure Name Priority Date/Time Associated Diagnosis Comme nts ASSIGNMENT OF BENEFITS Routine 09/12/2020 2:29 PM CDT documented in this encounter Results Not on filedocumented in this encounter Insurance Payer Benefit Plan / Subscriber ID Effective Dates Phone Addre ss Type Group BCBS OF HIM BCBS BLUE [id number] 2019-Barrie [phone] [address] [facility] [id number] [place] [address] documented as of this encounter
--- OUTSIDE RECORDS SUMMARY | 2020-09-14 13:53 | XMS REPORT | Clinical Summary ---
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) Social History Tobacco Use Types Packs/Day Years Used Date Never Smoker Smokeless Tobacco: Never Used Sex Assigned at Date Recorded Not on file Last Filed Vital Signs Not on file Plan of Treatment Health Maintenance Due Date Last Done Comments INFLUENZA VACCINE 06/21/2020 Results Not on fileafter 09/14/2019 Insurance Payer Benefit Plan / Subscriber ID Effective Phone Address T ype Group Dates COMMERCIAL MISC MISC COMMERCIAL [id number] 2018-Prese Commercial nt Advance Directives For more information, please contact: [phone] Type Date Recorded Patient Med Specialist Explanati on Advance Directives, Living Will and Medical Power of [place] Advance Directives, Living Will 05/28/2019 1:33 PM and Medical Power of [place] Advance Directives, Living Will 05/28/2019 1:44 PM and Medical Power of [place]
[2020-09-14] MEDS ORDERED: KETOROLAC 30 MG/ML INJ ONE (14:35)
[2020-09-14] MEDS ORDERED: DIAZEPAM 10 MG/2 ML INJ SYRINGE ONE (14:35)
--- NOTE | 2020-09-14 15:01 | RAD REPORT ---
EXAM DESCRIPTION: RAD - Chest Single View - 09/14/2020 2:27 pm CLINICAL HISTORY: back pain COMPARISON: None TECHNIQUE: AP portable chest image was obtained 09/14/2020 2:27 pm . FINDINGS: Lungs are clear. Heart and vasculature are normal. No measurable pleural effusion and no p neumothorax. No acute bone finding. There is a mild right convex scoliotic curvature. No fused or ano malous vertebrae. No paraspinal mass. No acute aortic findings suspected. IMPRESSION: No acute cardiopulmonary process.
[2020-09-14] MEDS ORDERED: HYDROCODONE/APAP 7.5/325 MG TAB ONE (15:35)
[2020-09-14] MEDS ORDERED: LIDOCAINE 1% W/EPI 1:100,000 MDV 20 ML VIAL ONE (15:36)
--- NOTE | 2020-09-14 15:40 | ER ---
Nurse's Notes [facility] Name: Drew Shin Age: 29 yrs Sex: Male : 1990 Arrival Date: 09/14/2020 Time: 13:54 Bed 7 Private MD: Diagnosis: Strain of muscle and tendon of back wall of thorax-left Presentation: 09/14 13:59 Chief complaint: Patient states: Mid back pain worsening for 1 week. No trauma or ll1 falls. Pain to upper back when moving neck around. No fever. Coronavirus screen: Client denies travel out of the [place] in the last 14 days. At this time, the client does not indicate any symptoms associated with coronavirus-19. Ebola Screen: Patient denies travel to an Ebola-affected area in the 21 days before illness onset. Acute neurological deficit: none identified. Initial Sepsis Screen: Does the patient meet any 2 criteria? No. Patient's initial sepsis screen is negative. Does the patient have a suspected source of infection? Yes: Bone or joint infection. Risk Assessment: Do you want to hurt yourself or someone else? Patient reports no desire to harm self or others. Onset of symptoms was September 08, 2020. 13:59 Method Of Arrival: Ambulatory ll1 13:59 Acuity: JANNETH 4 ll1 Historical: - Allergies: 13:58 No Known Allergies; ll1 - PMHx: 13:58 HIV; ll1 - Immunization history:: Flu vaccine is not up to date. - Social history:: Smoking status: Patient denies any tobacco usage or history of. Screenin:20 Abuse screen: Denies threats or abuse. Nutritional screening: No deficits noted. em Tuberculosis screening: No symptoms or risk factors identified. Fall Risk None identified. Assessment: 14:25 General: Appears in no apparent distress. uncomfortable, Behavior is calm, cooperative, em appropriate for age. Pain: Complains of pain in lumbar area and neck Pain currently is 8 out of 10 on a pain scale. Pain began 1 week ago. Neuro: Level of Consciousness is awake, alert, obeys commands, Oriented to person, place, time, situation, Appropriate for age. Cardiovascular: Capillary refill < 3 seconds Patient's skin is warm and dry. Respiratory: Airway is patent Respiratory effort is even, unlabored, Respiratory pattern is regular, symmetrical. Derm: Skin is intact, is healthy with good turgor, Skin is pink, warm \T\ dry. Musculoskeletal: Capillary refill < 3 seconds, Range of motion: intact in all extremities. 15:00 Reassessment: Patient appears in no apparent distress at this time. Patient and/or em family updated on plan of care and expected duration. Pain level reassessed. Patient is alert, oriented x 3, equal unlabored respirations, skin warm/dry/pink. pain unchanged, provider notified. Vital Signs: 13:59 BP 138 / 95; Pulse 75; Resp 16; Temp 98.3; Pulse Ox 99% ; Weight 68.04 kg; Height 6 ft. ll1 2 in. (187.96 cm); Pain 8/10; 16:00 BP 141 / 86; Pulse 80; Resp 18; Pulse Ox 98% on R/A; em 13:59 Body Mass Index 19.26 (68.04 kg, 187.96 cm) ll1 ED Course: 13:54 Patient arrived in ED. mr 13:58 Arm band placed on Patient placed in an exam room, on a stretcher. ll1 14:00 Triage completed. ll1 14:07 Jose Vasquez PA is PHCP. cp 14:07 Tremaine Dee MD is Attending Physician. cp 14:09 Jermaine Yadav, RN is Primary Nurse. em 14:20 Patient has correct armband on for positive identification. Bed in low position. Call em light in reach. Adult w/ patient. 14:21 X-ray(s) taken. sv 14:28 XRAY Chest (1 view) In Process Unspecified. EDMS 15:59 No provider procedures requiring assistance completed. Patient did not have IV access em during this emergency room visit. Administered Medications: 14:27 Drug: Diazepam 5 mg Route: IM; Site: right deltoid; em 15:50 Follow up: Response: No adverse reaction; No change in condition em 14:28 Drug: TORadol 30 mg Route: IM; Site: left deltoid; em 15:00 Follow up: Response: No adverse reaction em 15:25 Drug: Hydrocodone-Acetaminophen (7.5 mg-325 mg) 1 tabs Route: PO; em 16:00 Follow up: Response: No adverse reaction; Pain is decreased em 15:30 Drug: Lidocaine-Epinephrine -1%: (1:100,000) 10 ml {Note: administered by SALOME Garcia.} em Volume: 20 ml; Route: Infiltration; 16:00 Follow up: Response: No adverse reaction em Outcome: 15:39 Discharge ordered by . cp 15:59 Discharged to home ambulatory, with family. em 15:59 Condition: good 15:59 Discharge instructions given to patient, Instructed on discharge instructions, follow up and referral plans. medication usage, Demonstrated understanding of instructions, follow-up care, medications, Prescriptions given X 3. 16:01 Patient left the ED. em Signatures: Dispatcher [employer] EDGavi Luz RN RN Yovana Sen Edgar, RN RN em Page, Corey, PA PA cp Lewis, Lynsay RN RN ll1
--- NOTE | 2020-09-14 15:40 | EDPHYS ---
Physician Documentation [facility] Name: Drew Shin Age: 29 yrs Sex: Male : 1990 Arrival Date: 09/14/2020 Time: 13:54 Bed 7 Private MD: ED Physician Tremaine Dee HPI: 09/14 14:18 This 29 yrs old Male presents to ER via Ambulatory with complaints of Stiff cp Neck, Neck Problem. 14:18 The patient or guardian complains of pain, that is acute. cp 14:18 The symptoms are located in the left trapezius, left scapular area and left subscapular cp area. Onset: The symptoms/episode began/occurred 1 week(s) ago. 14:18 The pain does not radiate. Associated signs and symptoms: Pertinent positives: neck cp stiffness, Pertinent negatives: abdominal pain, chest pain, fever, headache, numbness, tingling, weakness. The problem was sustained started upon awakening approximately 1 week ago. Modifying factors: the patient symptoms are aggravated by turning head to right, deep inspiration. Historical: - Allergies: 13:58 No Known Allergies; ll1 - PMHx: 13:58 HIV; ll1 - Immunization history:: Flu vaccine is not up to date. - Social history:: Smoking status: Patient denies any tobacco usage or history of. ROS: 14:25 Eyes: Negative for injury, pain, redness, and discharge. cp 14:25 Constitutional: Negative for body aches, chills, fever, poor PO intake. 14:25 ENT: Negative for drainage from ear(s), ear pain, sore throat, difficulty swallowing, cp difficulty handling secretions. 14:25 Neck: Positive for pain with movement, pain at rest, stiffness, tenderness. 14:25 Cardiovascular: Negative for chest pain, edema, palpitations. 14:25 Respiratory: Negative for cough, shortness of breath, wheezing. 14:25 Abdomen/GI: Negative for abdominal pain, nausea, vomiting, and diarrhea. 14:25 Back: Positive for pain at rest, pain with movement, of the left trapezius, left scapular area and left subscapular area, Negative for injury or acute deformity. 14:25 Skin: Negative for rash. 14:25 Neuro: Negative for altered mental status, dizziness, headache, numbness, tingling, weakness. 14:25 All other systems are negative. Exam: 14:30 Constitutional: The patient appears in no acute distress, alert, awake, cp non-diaphoretic, non-toxic, well developed, well nourished. 14:30 Head/Face: Normocephalic, atraumatic. cp 14:30 Eyes: Periorbital structures: appear normal, Conjunctiva: normal, no exudate, no injection, Sclera: no appreciated abnormality, Lids and lashes: appear normal, bilaterally. 14:30 ENT: External ear(s): are unremarkable, Nose: is normal, Posterior pharynx: Airway: no evidence of obstruction, patent. 14:30 Neck: C-spine: vertebral tenderness, is not appreciated, crepitus, is not appreciated, ROM/movement: pain, that is moderate, with rotation to the right, limited range of motion, that is mild, when rotating to the right, Meningeal signs: are not present, Lymph nodes: no appreciated lymphadenopathy. 14:30 Chest/axilla: Inspection: normal, Palpation: is normal, no crepitus, no tenderness. 14:30 Cardiovascular: Rate: normal, Rhythm: regular, Edema: is not appreciated, JVD: is not appreciated. 14:30 Respiratory: the patient does not display signs of respiratory distress, Respirations: normal, no use of accessory muscles, no retractions, labored breathing, is not present, Breath sounds: are clear throughout, no decreased breath sounds, no stridor, no wheezing. 14:30 Abdomen/GI: Inspection: abdomen appears normal, Palpation: abdomen is soft and non-tender, in all quadrants. 14:30 Back: pain, that is moderate, of the left trapezius, left scapular area and left subscapular area, ROM is painful, with rotation to the right, no spinal tenderness to palpation appreciated. 14:30 Skin: no rash present. 14:30 Neuro: Orientation: to person, place \T\ time. Mentation: is normal, Motor: moves all fours, strength is normal. Vital Signs: 13:59 BP 138 / 95; Pulse 75; Resp 16; Temp 98.3; Pulse Ox 99% ; Weight 68.04 kg; Height 6 ft. ll1 2 in. (187.96 cm); Pain 8/10; 16:00 BP 141 / 86; Pulse 80; Resp 18; Pulse Ox 98% on R/A; em 13:59 Body Mass Index 19.26 (68.04 kg, 187.96 cm) ll1 MDM: 14:12 Patient medically screened. cp 14:30 Differential diagnosis: vertebral fracture, pneumothorax, pneumonia, muscle strain, cp muscle spasm. 15:38 Data reviewed: vital signs, nurses notes, radiologic studies, plain films. cp 15:38 Test interpretation: by ED physician or midlevel provider: chest xray negative for cp infiltrates and/or pneumothorax. Counseling: I had a detailed discussion with the patient and/or guardian regarding: the historical points, exam findings, and any diagnostic results supporting the discharge/admit diagnosis, radiology results, the need for outpatient follow up, a family practitioner, to return to the emergency department if symptoms worsen or persist or if there are any questions or concerns that arise at home. Response to treatment: the patient's symptoms have mildly improved after treatment, Pain improved with meds, and as a result, I will discharge patient. 09/14 14:15 Order name: XRAY Chest (1 view); Complete Time: 15:11 cp 09/14 15:11 Interpretation: Report reviewed. 09/14 15:15 Order name: I\T\D Setup; Complete Time: 15:50 cp Administered Medications: 14:27 Drug: Diazepam 5 mg Route: IM; Site: right deltoid; em 15:50 Follow up: Response: No adverse reaction; No change in condition em 14:28 Drug: TORadol 30 mg Route: IM; Site: left deltoid; em 15:00 Follow up: Response: No adverse reaction em 15:25 Drug: Hydrocodone-Acetaminophen (7.5 mg-325 mg) 1 tabs Route: PO; em 16:00 Follow up: Response: No adverse reaction; Pain is decreased em 15:30 Drug: Lidocaine-Epinephrine -1%: (1:100,000) 10 ml {Note: administered by PA. Jose} em Volume: 20 ml; Route: Infiltration; 16:00 Follow up: Response: No adverse reaction em Disposition: 09/14/20 15:39 Discharged to Home. Impression: Strain of muscle and tendon of back wall of thorax - left. - Condition is Stable. - Discharge Instructions: Thoracic Strain. - Prescriptions for Lidoderm 5 % Topical adhesive patch,medicated - apply 1 patch by TRANSDERMAL route once daily; 1 box. Baclofen 10 mg Oral Tablet - take 1 tablet by ORAL route 3 times per day; 20 tablet. Diclofenac Sodium 75 mg Oral Tablet Sustained Release - take 1 tablet by ORAL route 2 times per day; 30 tablet. - Medication Reconciliation Form, Thank You Letter, Antibiotic Education, Prescription Opioid Use form. - Follow up: Private Physician; When: 2 - 3 days; Reason: Worsening of condition. - Problem is new. - Symptoms have improved. Addendum: 09/18/2020 19:30 Co-signature as Attending Physician, Tremaine Dee MD. r n Signatures: Dispatcher [employer] Jermaine Perez RN RN em Tremaine Dee MD MD rn Page, Corey, PA PA cp Lewis, Lynsay RN RN ll1 Corrections: (The following items were deleted from the chart) 09/14 16:01 15:39 09/14/2020 15:39 Discharged to Home. Impression: Strain of muscle and tendon of em back wall of thorax - left. Condition is Stable. Forms are Medication Reconciliation Form, Thank You Letter, Antibiotic Education, Prescription Opioid Use. Follow up: Private Physician; When: 2 - 3 days; Reason: Worsening of condition. Problem is new. Symptoms have improved. cp 09/15 12:30 12:28 Constitutional: Negative for body aches, chills, fever, poor PO intake, cp cp 12:30 12:28 Eyes: Negative for injury, pain, redness, and discharge, cp cp 12:34 09/14 14:18 The symptoms are located cp cp
[2020-09-14 16:09] VITALS: TEMP 98.3
[2020-09-14 16:11] VITALS: BP 141/86; O2SAT 98
== END 2020-09-14 16:01 | disposition home or self-care (01) ==
LOC: ER 13:51
DX: S29.012A Strain of muscle and tendon of back wall of thorax, initial encounter (principal); Z21 Asymptomatic human immunodeficiency virus [HIV] infection status
CPT/HCPCS: 71045; 96372; 99283; J3360

== ENCOUNTER → 2022-03-05 | Emergency (ER) | payer OTHER ==
--- OUTSIDE RECORDS SUMMARY | 2022-03-05 19:06 | XMS REPORT | Continuity of Care Document ---
:1990 Author Organization [facility] t Address [address] [place] [address] Dr. J[address] [place] [address] Care Team Providers Name Role Phone Judson Attending Clinician Unavailable Sanjana BRAXTON Attending Clinician Unavailable LAURA Attending Clinician Unavailable PATRICK Attending Clinician Unavailable Singer SHAFER Attending Clinician Doctor Unassigned, Name Attending Clinician Unavailable Provider, Temp Attending Clinician Unavailable [facility] Attending Clinician Unavailable Patrick MCMAHON Attending Clinician Thad Azar MA Attending Clinician Unavailable Mekhi BARAJAS E Attending Clinician Unknown Attending Clinician Unavailable 1, Lab Attending Clinician Unavailable Payers Payer Name Policy Type Policy Number Effective Date Expiration Date S donna [employer] BLUE [id number] 2019 ADVANTAGE O 00:00:00 ELIO CHRISTIANSONR FROM [id number] 2020 [facility] 00:00:00 Problems Condition Condition Condition Status Onset Resolution Last Treating Co mments Source Name Details Category Date Date Treatment Clinician Date 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 ([place]) Allergies, Adverse Reactions, Alerts Allergy Allergy Status Severity Reaction(s) Onset Inactive Treating Comm ents Source Name Type Date Date Clinician NO KNOWN Drug Active Univers ALLERGIE Class ity of S [facility] Social History Social Habit Start Date Stop Date Quantity Comments Source Exposure to Not sure [facility] SARS-CoV-2 [facility] (event) [place] Alcohol intake 2020-06-09 2020-06-09 Current drinker Unive rsity of 00:00:00 00:00:[address] [facility] (finding) Branch Tobacco use and 2020-06-09 2020-06-09 Never used Universit y of exposure 00:00:00 00:00:00 [facility] Sex Assigned At [birth year] Male [facility] . Thad [facility] - 00:00:00 00:00:00 [place] (Robin albarado) Smoking Status Start Date Stop Date Source Unknown if ever smoked [facility] ([place]) Never smoker [facility] [place] [facility] Medications Ordered Filled Start Stop Current Ordering Indication Dosage Frequency Signature Comments Components Source Medication Medication Date Date Medication? Clinician (SIG) Name Name diphenhydrA 2019-11- No 25mg 25 mg, Uni vers MINE 11-28 Oral, ity of (BENADRYL) 17:00: 15:54 ONCE, 1 [place] tablet 25 00 :00 dose, Sun Medic al mg 09/28/20 at [place] 1100, [place] HYDROcodone 2019-11- No 1{tbl} 1 tablet, Univers -acetaminop 11-28 Oral, ity of hen (NORCO) 15:51: 15:54 [place]CE[place] 1 [place] 10[place]325 mg 00 :00 dose, Sun Medic al tablet 1 09/28/20 at [facility] tablet 1000, Routine QUEtiapine 2020- No 50mg Take 50 mg Univers (SEROQUEL) 06-09 by mouth ity of 50 mg 21:25: 00:00 at [place] tablet 00 :00 bedtime. Medical Branch diazePAM 10 2020- No 10mg Take 10 mg Univers mg tablet -09 06- by mouth ity o f 21:24: 00:00 at [place] 53 :00 bedtime. Medical Branch predniSONE 2019- Yes [id number] 2 tabs Univers 20 mg 7-20 once daily ity of tablet 00:00: x 5 days [place] 00 Medical Branch predniSONE 2019- Yes [id number] 2 tabs Univers 20 mg 7-20 once daily ity of tablet 00:00: x [address] [place] [facility] predniSONE 2020-0 Yes [id number] 2 tabs Univers 20 mg 7-20 once daily ity of tablet 00:00: x [address] [place] [facility] predniSONE 2020-0 Yes [id number] 2 tabs Univers 20 mg 7-20 once daily ity of tablet 00:00: x [address] [place] [facility] predniSONE 2020-0 Yes [id number] 2 tabs Univers 20 mg 7-20 once daily ity of tablet 00:00: x [address] [place] [facility] predniSONE 2020-0 Yes [id number] 2 tabs Univers 20 mg 7-20 once daily ity of tablet 00:00: x [address] [place] [facility] predniSONE 2020-0 Yes [id number] 2 tabs Univers 20 mg 7-20 once daily ity of tablet 00:00: x [address] [place] [facility] predniSONE 2020-0 Yes [id number] 2 tabs Univers 20 mg 7-20 once daily ity of tablet 00:00: x [address] [place] [facility] temazepam 2020-0 2020- No 15mg Take 1 Unive rs 15 mg 7-20 07-20 capsule by ity of capsule 00:00: 00:00 mouth at [place] 00 :00 bedtime as Medical needed for Branch Insomnia. temazepam 2020-0 Yes TK 1 C PO Uni vers 15 mg 7-01 QD HS ity of capsule 00:00: [address] temazepam 2020-0 Yes TK 1 C PO Uni vers 15 mg 7-01 QD HS ity of capsule 00:00: [address] temazepam 2020-0 Yes TK 1 C PO Uni vers 15 mg 7-01 QD HS ity of capsule 00:00: [place] [facility] temazepam 2020-0 Yes TK 1 C PO Uni vers 15 mg 7-01 QD HS ity of capsule 00:00: [address] temazepam 2020-0 Yes TK 1 C PO Uni vers 15 mg 7-01 QD HS ity of capsule 00:00: [address] temazepam 2020-0 Yes TK 1 C PO Uni vers 15 mg 7-01 QD HS ity of capsule 00:00: [address] temazepam 2020-0 Yes TK 1 C PO Uni vers 15 mg 7-01 QD HS ity of capsule 00:00: [place] 00 Medical Branch temazepam 2020-0 Yes TK 1 C PO Uni vers 15 mg 7-01 QD HS ity of capsule 00:00: [place] 00 Medical Branch QUEtiapine 2020-0 Yes 50mg Take 50 mg U nivers (SEROQUEL) 2-14 by mouth ity o f 50 mg 22:12: at [place] tablet 24 bedtime. Medical Branch diazePAM 10 2020-0 Yes 10mg Take 10 mg Univers mg tablet 2-14 by mouth ity of 22:12: at [place] 24 bedtime. Medical Branch QUEtiapine 2020-0 Yes 50mg Take 50 mg U nivers (SEROQUEL) 2-14 by mouth ity o f 50 mg 22:12: at [place] tablet 24 bedtime. Medical Branch diazePAM 10 2019-0 Yes 10mg Take 10 mg Univers mg tablet 2-14 by mouth ity of 22:12: at [place] 24 bedtime. Medical Branch QUEtiapine 2020-0 Yes 50mg Take 50 mg U nivers (SEROQUEL) 2-14 by mouth ity o f 50 mg 22:12: at [place] tablet 24 bedtime. Medical Branch diazePAM 10 2019-0 Yes 10mg Take 10 mg Univers mg tablet 2-14 by mouth ity of 22:12: at [place] 24 bedtime. Medical Branch QUEtiapine 2020-0 Yes 50mg Take 50 mg U nivers (SEROQUEL) 2-14 by mouth ity o f 50 mg 22:12: at [place] tablet 24 bedtime. Medical Branch diazePAM 10 2019-0 Yes 10mg Take 10 mg Univers mg tablet 2-14 by mouth ity of 22:12: at [place] 24 bedtime. Medical Branch QUEtiapine 2020-0 Yes 50mg Take 50 mg U nivers (SEROQUEL) 2-14 by mouth ity o f 50 mg 22:12: at [place] tablet 24 bedtime. Medical Branch diazePAM 10 2020-0 Yes 10mg Take 10 mg Univers mg tablet 2-14 by mouth ity of 22:12: at [place] 24 bedtime. Medical Branch QUEtiapine 2020-0 Yes 50mg Take 50 mg U nivers (SEROQUEL) 2-14 by mouth ity o f 50 mg 22:12: at [place] tablet 24 bedtime. Medical Branch diazePAM 10 2020-0 Yes 10mg Take 10 mg Univers mg tablet 2-14 by mouth ity of 22:12: at [place] 24 bedtime. Medical Branch QUEtiapine 2020-0 Yes 50mg Take 50 mg U nivers (SEROQUEL) 2-14 by mouth ity o f 50 mg 22:12: at [place] tablet 24 bedtime. Medical Branch diazePAM 10 2020-0 Yes 10mg Take 10 mg Univers mg tablet 2-14 by mouth ity of 22:12: at [place] 24 bedtime. Medical Branch QUEtiapine 2020-0 Yes 50mg Take 50 mg U nivers (SEROQUEL) 2-14 by mouth ity o f 50 mg 22:12: at [place] tablet 24 bedtime. Medical Branch diazePAM 10 2020-0 Yes 10mg Take 10 mg Univers mg tablet 2-14 by mouth ity of 22:12: at [place] 24 bedtime. Medical Branch QUEtiapine 2020-0 Yes 50mg Take 50 mg U nivers (SEROQUEL) 2-14 by mouth ity o f 50 mg 22:12: at [place] tablet 24 bedtime. Medical Branch diazePAM 10 2020-0 Yes 10mg Take 10 mg Univers mg tablet 2-14 by mouth ity of 22:12: at [place] 24 bedtime. Medical Branch bictegrav-e 2020-0 Yes [id number] 1{tbl} Take 1 Univers mtricit-ten 2-14 tablet by ity of ofov ala 00:00: mouth [place] (BIKTARVY) 00 daily. Medical 50-200-25 Take on Branch mg tablet 50/200/25 mg tablet once daily bictegrav-e 2020-0 Yes [id number] 1{tbl} Take 1 Univers mtricit-ten 2-14 tablet by ity of ofov ala 00:00: mouth [place] (BIKTARVY) 00 daily. Medical 50-200-25 Take on Branch mg tablet 50/200/25 mg tablet once daily bictegrav-e 2020-0 Yes [id number] 1{tbl} Take 1 Univers mtricit-ten 2-14 tablet by ity of ofov ala 00:00: mouth [place] (BIKTARVY) 00 daily. Medical 50-200-25 Take on Branch mg tablet 50/200/25 mg tablet once daily bictegrav-e 2020-0 Yes [id number] 1{tbl} Take 1 Univers mtricit-ten 2-14 tablet by ity of ofov ala 00:00: mouth [place] (BIKTARVY) 00 daily. Medical 50-200-25 Take on Branch mg tablet 50/200/25 mg tablet once daily bictegrav-e 2020-0 Yes [id number] 1{tbl} Take 1 Univers mtricit-ten 2-14 tablet by ity of ofov ala 00:00: mouth [place] (BIKTARVY) 00 daily. Medical 50-200-25 Take on Branch mg tablet 50/200/25 mg tablet once daily bictegrav-e 2020-0 Yes [id number] 1{tbl} Take 1 Univers mtricit-ten 2-14 tablet by ity of ofov ala 00:00: mouth [place] (BIKTARVY) 00 daily. Medical 50-200-25 Take on Branch mg tablet 50/200/25 mg tablet once daily bictegrav-e 2020-0 Yes [id number] 1{tbl} Take 1 Univers mtricit-ten 2-14 tablet by ity of ofov ala 00:00: mouth [place] (BIKTARVY) 00 daily. Medical 50-200-25 Take on Branch mg tablet 50/200/25 mg tablet once daily bictegrav-e 2020-0 Yes [id number] 1{tbl} Take 1 Univers mtricit-ten 2-14 tablet by ity of ofov ala 00:00: mouth [place] (BIKTARVY) 00 daily. Medical 50-200-25 Take on Branch mg tablet 50/200/25 mg tablet once daily bictegrav-e 2020-0 Yes [id number] 1{tbl} Take 1 Univers mtricit-ten 2-14 tablet by ity of ofov ala 00:00: mouth [place] (BIKTARVY) 00 daily. Medical 50-200-25 Take on Branch mg tablet 50/200/25 mg tablet once daily bictegrav-e 2020-0 Yes [id number] 1{tbl} Take 1 Univers mtricit-ten 2-14 tablet by ity of ofov ala 00:00: mouth [place] (BIKTARVY) 00 daily. Medical 50-200-25 Take on Branch mg tablet 50/200/25 mg tablet once daily bictegrav-e 2020-0 Yes [id number] 1{tbl} Take 1 Univers mtricit-ten 2-14 tablet by ity of ofov ala 00:00: mouth [place] (BIKTARVY) 00 daily. Medical 50-200-25 Take on Branch mg tablet 50/200/25 mg tablet once daily bictegrav-e 2020-0 Yes [id number] 1{tbl} Take 1 Univers mtricit-ten 2-14 tablet by ity of ofov ala 00:00: mouth [place] (BIKTARVY) 00 daily. Medical 50-200-25 Take on Branch mg tablet 50/200/25 mg tablet once daily bictegrav-e 2020-0 Yes [id number] 1{tbl} Take 1 Univers mtricit-ten 2-14 tablet by ity of ofov ala 00:00: mouth [place] (BIKTARVY) 00 daily. Medical 50-200-25 Take on Branch mg tablet 50/200/25 mg tablet once daily bictegrav-e 2020-0 Yes [id number] 1{tbl} Take 1 Univers mtricit-ten 2-14 tablet by ity of ofov ala 00:00: mouth [place] (BIKTARVY) 00 daily. Medical 50-200-25 Take on Branch mg tablet 50/200/25 mg tablet once daily bictegrav-e 2020-0 Yes [id number] 1{tbl} Take 1 Univers mtricit-ten 2-14 tablet by ity of ofov ala 00:00: mouth [place] (BIKTARVY) 00 daily. Medical 50-200-25 Take on Branch mg tablet 50/200/25 mg tablet once daily bictegrav-e 2020-0 Yes [id number] 1{tbl} Take 1 Univers mtricit-ten 2-14 tablet by ity of ofov ala 00:00: mouth [place] (BIKTARVY) 00 daily. Medical 50-200-25 Take on Branch mg tablet 50/200/25 mg tablet once daily bictegrav-e 2020-0 Yes [id number] 1{tbl} Take 1 Univers mtricit-ten 2-14 tablet by ity of ofov ala 00:00: mouth [place] (BIKTARVY) 00 daily. Medical 50-200-25 Take on Branch mg tablet 50/200/25 mg tablet once daily metoclopram 2020-0 Yes [id number] 1 tab Univers krish HCl 10 1-26 every 4hr ity of mg tablet 00:00: as needed [place] 00 for nausea Medical Branch metoclopram 2020-0 Yes [id number] 1 tab Univers krish HCl 10 1-26 every 4hr ity of mg tablet 00:00: as needed [place] 00 for nausea Medical Branch metoclopram 2020-0 Yes [id number] 1 tab Univers krish HCl 10 1-26 every 4hr ity of mg tablet 00:00: as needed [place] 00 for nausea Medical Branch metoclopram 2020-0 Yes [id number] 1 tab Univers krish HCl 10 1-26 every 4hr ity of mg tablet 00:00: as needed [place] 00 for nausea Medical Branch metoclopram 2020-0 Yes [id number] 1 tab Univers krish HCl 10 1-26 every 4hr ity of mg tablet 00:00: as needed [place] 00 for nausea Medical Branch metoclopram 2020-0 Yes [id number] 1 tab Univers krish HCl 10 1-26 every 4hr ity of mg tablet 00:00: as needed [place] 00 for nausea Medical Branch metoclopram 2020-0 Yes [id number] 1 tab Univers krish HCl 10 1-26 every 4hr ity of mg tablet 00:00: as needed [place] 00 for nausea Medical Branch metoclopram 2020-0 Yes [id number] 1 tab Univers krish HCl 10 1-26 every 4hr ity of mg tablet 00:00: as needed [place] 00 for nausea Medical Branch metoclopram 2020-0 Yes [id number] 1 tab Univers krish HCl 10 1-26 every 4hr ity of mg tablet 00:00: as needed [place] 00 for nausea Medical Branch metoclopram 2020-0 Yes [id number] 1 tab Univers krish HCl 10 1-26 every 4hr ity of mg tablet 00:00: as needed [place] 00 for nausea Medical Branch metoclopram 2020-0 2020- No [id number] 1 tab Univers krish HCl 10 1-26 07-20 every 4hr ity of mg tablet 00:00: 00:00 [place] 00 :00 for nausea Medical Branch bictegrav-e 2019- Yes [id number] 1{tbl} Take 1 Univers mtricit-ten 0-22 tablet by ity of ofov ala 00:00: mouth [place] (BIKTARVY) 00 daily. Medical 50-200-25 Take on Branch mg tablet 50/200/25 mg tablet once daily bictegrav-e 2018- Yes [id number] 1{tbl} Take 1 Univers mtricit-ten 0-22 tablet by ity of ofov ala 00:00: mouth [place] (BIKTARVY) 00 daily. Medical 50-200-25 Take on Branch mg tablet 50/200/25 mg tablet once daily bictegrav-e 2018-11 Yes [id number] 1{tbl} Take 1 Univers mtricit-ten 0-22 tablet by ity of ofov ala 00:00: mouth [place] (BIKTARVY) 00 daily. Medical 50-200-25 Take on Branch mg tablet 50/200/25 mg tablet once daily bictegrav-e 2018-11 Yes [id number] 1{tbl} Take 1 Univers mtricit-ten 0-22 tablet by ity of ofov ala 00:00: mouth [place] (BIKTARVY) 00 daily. Medical 50-200-25 Take on Branch mg tablet 50/200/25 mg tablet once daily bictegrav-e 2018-11 Yes [id number] 1{tbl} Take 1 Univers mtricit-ten 0-22 tablet by ity of ofov ala 00:00: mouth [place] (BIKTARVY) 00 daily. Medical 50-200-25 Take on Branch mg tablet 50/200/25 mg tablet once daily bictegrav-e 2018-11 Yes [id number] 1{tbl} Take 1 Univers mtricit-ten 0-22 tablet by ity of ofov ala 00:00: mouth [place] (BIKTARVY) 00 daily. Medical 50-200-25 Take on Branch mg tablet 50/200/25 mg tablet once daily bictegrav-e 2018-11 2020- No [id number] 1{tbl} Take 1 Univers mtricit-ten 0-22 02-14 tablet by it y of ofov ala 00:00: 00:00 mouth [place] (BIKTARVY) 00 :00 daily. Medical 50-200-25 Take on Branch mg tablet 50/200/25 mg tablet once daily bictegrav-e 2018-11 2020- No [id number] 1{tbl} Take 1 Univers mtricit-ten 0-22 02-14 tablet by it y of ofov ala 00:00: 00:00 mouth [place] (BIKTARVY) 00 :00 daily. Medical 50-200-25 Take on Branch mg tablet 50/200/25 mg tablet once daily dutasteride Yes .5mg Take 1 Univ ers 0.5 mg 4-23 capsule by ity of capsule 00:00: mouth [place] 00 daily. Medical Branch eszopiclone 2019-0 Yes 3mg Take 1 Univ ers (LUNESTA) 3 4-23 tablet by ity of mg tablet 00:00: [place] bedtime. Medical Branch methylpheni 2019-0 Yes 10mg Take 1 Univ ers date HCl 4-23 capsule by ity o f (RITALIN 00:00: mouth [place]) 10 mg 00 every Medical 24 hr morning. Branch capsule dutasteride 2019-0 Yes .5mg Take 1 Univ ers 0.5 mg 4-23 capsule by ity of capsule 00:00: mouth [place] 00 daily. Medical Branch eszopiclone 2018-0 Yes 3mg Take 1 Univ ers (LUNESTA) 3 4-23 tablet by ity of mg tablet 00:00: [place] 00 bedtime. Medical Branch methylpheni 2018-0 Yes 10mg Take 1 Univ ers date HCl 4-23 capsule by ity o f (RITALIN 00:00: mouth [place]) 10 mg 00 every Medical 24 hr morning. Branch capsule dutasteride 2018-0 Yes .5mg Take 1 Univ ers 0.5 mg 4-23 capsule by ity of capsule 00:00: mouth [place] 00 daily. Medical Branch eszopiclone 2018-0 Yes 3mg Take 1 Univ ers (LUNESTA) 3 4-23 tablet by ity of mg tablet 00:00: [place] 00 bedtime. Medical Branch methylpheni 2019-0 Yes 10mg Take 1 Univ ers date HCl 4-23 capsule by ity o f (RITALIN 00:00: mouth [place]) 10 mg 00 every Medical 24 hr morning. Branch capsule dutasteride 2018-0 Yes .5mg Take 1 Univ ers 0.5 mg 4-23 capsule by ity of capsule 00:00: mouth [place] 00 daily. Medical Branch eszopiclone 2018-0 Yes 3mg Take 1 Univ ers (LUNESTA) 3 4-23 tablet by ity of mg tablet 00:00: mouth [place] 00 bedtime. Medical Branch methylpheni 2019-0 Yes 10mg Take 1 Univ ers date HCl 4-23 capsule by ity o f (RITALIN 00:00: mouth [place]) 10 mg 00 every Medical 24 hr morning. Branch capsule dutasteride 2019-0 Yes .5mg Take 1 Univ ers 0.5 mg 4-23 capsule by ity of capsule 00:00: mouth [place] 00 daily. Medical Branch eszopiclone 2019-0 Yes 3mg Take 1 Univ ers (LUNESTA) 3 4-23 tablet by ity of mg tablet 00:00: mouth [place] 00 bedtime. Medical Branch methylpheni 2019-0 Yes 10mg Take 1 Univ ers date HCl 4-23 capsule by ity o f (RITALIN 00:00: mouth [place]) 10 mg 00 every Medical 24 hr morning. Branch capsule dutasteride 2019-0 Yes .5mg Take 1 Univ ers 0.5 mg 4-23 capsule by ity of capsule 00:00: mouth [place] 00 daily. Medical Branch eszopiclone 2019-0 Yes 3mg Take 1 Univ ers (LUNESTA) 3 4-23 tablet by ity of mg tablet 00:00: mouth [place] bedtime. Medical Branch methylpheni 2019-0 Yes 10mg Take 1 Univ ers date HCl 4-23 capsule by ity o f (RITALIN 00:00: mouth [place]) 10 mg 00 every Medical 24 hr morning. Branch capsule dutasteride 2019-0 Yes .5mg Take 1 Univ ers 0.5 mg 4-23 capsule by ity of capsule 00:00: mouth [place] 00 daily. Medical Branch eszopiclone 2019-0 Yes 3mg Take 1 Univ ers (LUNESTA) 3 4-23 tablet by ity of mg tablet 00:00: [place] 00 bedtime. Medical Branch methylpheni 2019-0 Yes 10mg Take 1 Univ ers date HCl 4-23 capsule by ity o f (RITALIN 00:00: mouth [place]) 10 mg 00 every Medical 24 hr morning. Branch capsule dutasteride 2019-0 Yes .5mg Take 1 Univ ers 0.5 mg 4-23 capsule by ity of capsule 00:00: mouth [place] 00 daily. Medical Branch eszopiclone 2019-0 Yes 3mg Take 1 Univ ers (LUNESTA) 3 4-23 tablet by ity of mg tablet 00:00: mouth [place] 00 bedtime. Medical Branch methylpheni 2019-0 Yes 10mg Take 1 Univ ers date HCl 4-23 capsule by ity o f (RITALIN 00:00: mouth [place]) 10 mg 00 every Medical 24 hr morning. Branch capsule dutasteride 2018-0 Yes .5mg Take 1 Univ ers 0.5 mg 4-23 capsule by ity of capsule 00:00: mouth [place] 00 daily. Medical Branch eszopiclone 2018-0 Yes 3mg Take 1 Univ ers (LUNESTA) 3 4-23 tablet by ity of mg tablet 00:00: mouth [place] 00 bedtime. Medical Branch methylpheni 2018-0 Yes 10mg Take 1 Univ ers date HCl 4-23 capsule by ity o f (RITALIN 00:00: mouth [place]) 10 mg 00 every Medical 24 hr morning. Branch capsule dutasteride Yes .5mg Take 1 Univ ers 0.5 mg 4-23 capsule by ity of capsule 00:00: mouth [place] 00 daily. Medical Branch eszopiclone Yes 3mg Take 1 Univ ers (LUNESTA) 3 4-23 tablet by ity of mg tablet 00:00: mouth [place] 00 bedtime. Medical Branch dutasteride 2018-0 Yes .5mg Take 1 Univ ers 0.5 mg 4-23 capsule by ity of capsule 00:00: mouth [place] 00 daily. Medical Branch dutasteride 2018-0 Yes .5mg Take 1 Univ ers 0.5 mg 4-23 capsule by ity of capsule 00:00: mouth [place] 00 daily. Medical Branch dutasteride 2018-0 Yes .5mg Take 1 Univ ers 0.5 mg 4-23 capsule by ity of capsule 00:00: mouth [place] 00 daily. Medical Branch dutasteride 0 Yes .5mg Take 1 Univ ers 0.5 mg 4-23 capsule by ity of capsule 00:00: mouth [place] 00 daily. Medical Branch bictegrav-e 2018-0 Yes [id number] 50mg Take 50 mg Univers mtricit-ten 4-23 by mouth ity of ofov ala 00:00: daily. (BIKTARVY) 00 Take on Medica l 50-200-25 50/200/25 Branc h mg Tab mg tablet once daily dutasteride 2018- Yes .5mg Take 1 Univ ers 0.5 mg 4-23 capsule by ity of capsule 00:00: mouth [place] 00 daily. Medical Branch methylpheni 2019-0 Yes 10mg Take 1 Univ ers date HCl 4-23 capsule by ity o f (RITALIN 00:00: mouth [place]) 10 mg 00 every Medical 24 hr morning. Branch capsule dutasteride 2018-0 Yes .5mg Take 1 Univ ers 0.5 mg 4-23 capsule by ity of capsule 00:00: mouth [place] 00 daily. Medical Branch dutasteride 2018-0 Yes .5mg Take 1 Univ ers 0.5 mg 4-23 capsule by ity of capsule 00:00: mouth [place] 00 daily. Medical Branch eszopiclone 2018-0 Yes 3mg Take 1 Univ ers (LUNESTA) 3 4-23 tablet by ity of mg tablet 00:00: [place] bedtime. Medical Branch dutasteride 2018- Yes .5mg Take 1 Univ ers 0.5 mg 4-23 capsule by ity of capsule 00:00: mouth [place] 00 daily. Medical Branch dutasteride 2018- Yes .5mg Take 1 Univ ers 0.5 mg 4-23 capsule by ity of capsule 00:00: mouth [place] 00 daily. Medical Branch bictegrav-e Yes [id number] 50mg Take 50 mg Univers mtricit-ten 4-23 by mouth ity of ofov ala 00:00: daily. () Take on Medica l 50-200-25 50/200/25 Branc h mg Tab mg tablet once daily methylpheni 2018-0 Yes 10mg Take 1 Univ ers date HCl 4-23 capsule by ity o f (RITALIN 00:00: mouth [place]) 10 mg 00 every Medical 24 hr morning. Branch capsule dutasteride 2018-0 Yes .5mg Take 1 Univ ers 0.5 mg 4-23 capsule by ity of capsule 00:00: mouth [place] 00 daily. Medical Branch eszopiclone 2018-0 Yes 3mg Take 1 Univ ers (LUNESTA) 3 4-23 tablet by ity of mg tablet 00:00: [place] 00 bedtime. Medical Branch bictegrav-e 2018- Yes [id number] 50mg Take 50 mg Univers mtricit-ten 4-23 by mouth ity of ofov ala 00:00: daily. () 00 Take on Medica l 50-200-25 50/200/25 Branc h mg Tab mg tablet once daily methylpheni 2019-0 Yes 10mg Take 1 Univ ers date HCl 4-23 capsule by ity o f (RITALIN 00:00: mouth [place]) 10 mg 00 every Medical 24 hr morning. Branch capsule dutasteride 2018-0 Yes .5mg Take 1 Univ ers 0.5 mg 4-23 capsule by ity of capsule 00:00: mouth [place] 00 daily. Medical Branch eszopiclone 2018-0 Yes 3mg Take 1 Univ ers (LUNESTA) 3 4-23 tablet by ity of mg tablet 00:00: [place] 00 bedtime. Medical Branch methylpheni 2018-0 Yes 10mg Take 1 Univ ers date HCl 4-23 capsule by ity o f (RITALIN 00:00: mouth [place]) 10 mg 00 every Medical 24 hr morning. Branch capsule dutasteride 2018-0 Yes .5mg Take 1 Univ ers 0.5 mg 4-23 capsule by ity of capsule 00:00: mouth [place] 00 daily. Medical Branch eszopiclone 2018-0 Yes 3mg Take 1 Univ ers (LUNESTA) 3 4-23 tablet by ity of mg tablet 00:00: [place] 00 bedtime. Medical Branch methylpheni 2018-0 Yes 10mg Take 1 Univ ers date HCl 4-23 capsule by ity o f (RITALIN 00:00: mouth [place]) 10 mg 00 every Medical 24 hr morning. Branch capsule dutasteride 2018-0 Yes .5mg Take 1 Univ ers 0.5 mg 4-23 capsule by ity of capsule 00:00: mouth [place] 00 daily. Medical Branch eszopiclone 2018-0 Yes 3mg Take 1 Univ ers (LUNESTA) 3 4-23 tablet by ity of mg tablet 00:00: mouth [place] 00 bedtime. Medical Branch methylpheni 2018-0 Yes 10mg Take 1 Univ ers date HCl 4-23 capsule by ity o f (RITALIN 00:00: mouth [place]) 10 mg 00 every Medical 24 hr morning. Branch capsule dutasteride 2018-0 Yes .5mg Take 1 Univ ers 0.5 mg 4-23 capsule by ity of capsule 00:00: mouth [place] 00 daily. Medical Branch eszopiclone 2018-0 Yes 3mg Take 1 Univ ers (LUNESTA) 3 4-23 tablet by ity of mg tablet 00:00: mouth [place] 00 bedtime. Medical Branch methylpheni Yes 10mg Take 1 Univ ers date HCl 4-23 capsule by ity o f (RITALIN 00:00: mouth [place]) 10 mg 00 every Medical 24 hr morning. Branch capsule dutasteride 2019 Yes .5mg Take 1 Univ ers 0.5 mg 4-23 capsule by ity of capsule 00:00: mouth [place] 00 daily. Medical Branch eszopiclone Yes 3mg Take 1 Univ ers (LUNESTA) 3 4-23 tablet by ity of mg tablet 00:00: mouth [place] 00 bedtime. Medical Branch methylpheni Yes 10mg Take 1 Univ ers date HCl 4-23 capsule by ity o f (RITALIN 00:00: mouth [place]) 10 mg 00 every Medical 24 hr morning. Branch capsule dutasteride 2018- Yes .5mg Take 1 Univ ers 0.5 mg 4-23 capsule by ity of capsule 00:00: mouth [place] 00 daily. Medical Branch eszopiclone Yes 3mg Take 1 Univ ers (LUNESTA) 3 4-23 tablet by ity of mg tablet 00:00: [place] 00 bedtime. Medical Branch methylpheni Yes 10mg Take 1 Univ ers date HCl 4-23 capsule by ity o f (RITALIN 00:00: mouth [place]) 10 mg 00 every Medical 24 hr morning. Branch capsule methylpheni 2020- No 10mg Take 1 Uni vers date HCl 4-23 07-20 capsule by ity of (RITALIN 00:00: 00:00 mouth [place]) 10 mg 00 :00 every Medical 24 hr morning. Branch capsule eszopiclone 0 2020- No 3mg Take 1 Uni vers (LUNESTA) 3 4-23 07-20 tablet by it y of mg tablet 00:00: 00:00 mouth at [place] as 00 :00 bedtime. Medical Branch Immunizations Ordered Filled Immunization Date Status Comments [facility] e Immunization Name Name Influenza Virus 2020-08-22 Completed Universit y of Vaccine 00:00:00 [place] [facility] Influenza Virus 2020-08-22 Completed Universit y of Vaccine 00:00:00 [facility] Influenza Virus 2020-08-22 Completed Universit y of Vaccine 00:00:00 [facility] Influenza Virus 2020-08-22 Completed Universit y of Vaccine 00:00:00 [facility] Influenza Virus 2020-08-22 Completed Universit y of Vaccine 00:00:00 [facility] Influenza Virus 2019-08-02 Completed Universit y of Vaccine 00:00:00 [facility] Influenza Virus 2019-08-02 Completed Universit y of Vaccine 00:00:00 [facility] Influenza Virus 2019-08-02 Completed Universit y of Vaccine 00:00:00 [facility] Influenza Virus 2019-08-02 Completed Universit y of Vaccine 00:00:00 [facility] Influenza Virus 2019-08-02 Completed Universit y of Vaccine 00:00:00 [facility] Influenza Virus 2019-08-02 Completed Universit y of Vaccine 00:00:00 [facility] Influenza Virus 2019-08-02 Completed Universit y of Vaccine 00:00:00 [facility] Influenza Virus 2019-08-02 Completed Universit y of Vaccine 00:00:00 [facility] Influenza Virus 2019-08-02 Completed Universit y of Vaccine 00:00:00 [facility] Influenza Virus 2019-08-02 Completed Universit y of Vaccine 00:00:00 [facility] Influenza Virus 2019-08-02 Completed Universit y of Vaccine 00:00:00 [facility] Influenza Virus 2019-08-02 Completed Universit y of Vaccine 00:00:00 [facility] Influenza Virus 2019-08-02 Completed Universit y of Vaccine 00:00:00 [facility] Influenza Virus 2019-08-02 Completed Universit y of Vaccine 00:00:00 [facility] Influenza Virus 2019-08-02 Completed Universit y of Vaccine 00:00:00 [facility] Influenza Virus 2019-08-02 Completed Universit y of Vaccine 00:00:00 [facility] Influenza Virus 2019-08-02 Completed Universit y of Vaccine 00:00:00 [facility] Influenza Virus 2019-08-02 Completed Universit y of Vaccine 00:00:00 [facility] Influenza Virus 2019-08-02 Completed Universit y of Vaccine 00:00:00 [facility] Influenza Virus 2019-08-02 Completed Universit y of Vaccine 00:00:00 [facility] Influenza Virus 2019-08-02 Completed Universit y of Vaccine 00:00:00 [facility] Influenza Virus 2019-08-02 Completed Universit y of Vaccine 00:00:00 [facility] Influenza Virus 2019-08-02 Completed Universit y of Vaccine 00:00:00 [facility] Branch Pneumococcal 13 2019-03-27 Completed Universit y of Conjugate, PCV13 00:00:00 [place] Me dical (Prevnar 13) Branch Pneumococcal 13 2019-03-27 Completed Universit y of Conjugate, PCV13 00:00:00 [place] [facility] (Prevnar 13) Branch Pneumococcal 13 2019-03-27 Completed Universit y of Conjugate, PCV13 00:00:00 [place] [facility] (Prevnar 13) Branch Pneumococcal 13 2019-03-27 Completed Universit y of Conjugate, PCV13 00:00:00 [place] [facility] (Prevnar 13) Branch Pneumococcal 13 2019-03-27 Completed Universit y of Conjugate, PCV13 00:00:00 [place] [facility] (Prevnar 13) Branch Pneumococcal 13 2019-03-27 Completed Universit y of Conjugate, PCV13 00:00:00 [place] [facility] (Prevnar 13) Branch Pneumococcal 13 2019-03-27 Completed Universit y of Conjugate, PCV13 00:00:00 [place] [facility] (Prevnar 13) Branch Pneumococcal 13 2019-03-27 Completed Universit y of Conjugate, PCV13 00:00:00 [place] [facility] (Prevnar 13) Branch Pneumococcal 13 2019-03-27 Completed Universit y of Conjugate, PCV13 00:00:00 [place] [facility] (Prevnar 13) Branch Pneumococcal 13 2019-03-27 Completed Universit y of Conjugate, PCV13 00:00:00 [place] [facility] (Prevnar 13) Branch Pneumococcal 13 2019-03-27 Completed Universit y of Conjugate, PCV13 00:00:00 [place] [facility] (Prevnar 13) Branch Pneumococcal 13 2019-03-27 Completed Universit y of Conjugate, PCV13 00:00:00 [place] [facility] (Prevnar 13) Branch Pneumococcal 13 2019-03-27 Completed Universit y of Conjugate, PCV13 00:00:00 [place] [facility] (Prevnar 13) Branch Pneumococcal 13 2019-03-27 Completed Universit y of Conjugate, PCV13 00:00:00 [place] [facility] (Prevnar 13) Branch Pneumococcal 13 2019-03-27 Completed Universit y of Conjugate, PCV13 00:00:00 [place] [facility] (Prevnar 13) Branch Pneumococcal 13 2019-03-27 Completed Universit y of Conjugate, PCV13 00:00:00 [place] [facility] (Prevnar 13) Branch Pneumococcal 13 2019-03-27 Completed Universit y of Conjugate, PCV13 00:00:00 [place] [facility] (Prevnar 13) Branch Pneumococcal 13 2019-03-27 Completed Universit y of Conjugate, PCV13 00:00:00 [place] [facility] (Prevnar 13) Branch Pneumococcal 13 2019-03-27 Completed Universit y of Conjugate, PCV13 00:00:00 [place] [facility] (Prevnar 13) Branch Pneumococcal 13 2019-03-27 Completed Universit y of Conjugate, PCV13 00:00:00 [place] [facility] (Prevnar 13) Branch Pneumococcal 13 2019-03-27 Completed Universit y of Conjugate, PCV13 00:00:00 [place] [facility] (Prevnar 13) Branch Pneumococcal 13 2019-03-27 Completed Universit y of Conjugate, PCV13 00:00:00 [place] [facility] (Prevnar 13) Branch Pneumococcal 13 2019-03-27 Completed Universit y of Conjugate, PCV13 00:00:00 [place] [facility] (Prevnar 13) Branch Pneumococcal 13 2019-03-27 Completed Universit y of Conjugate, PCV13 00:00:00 [place] [facility] (Prevnar 13) Branch Pneumococcal 13 2019-03-27 Completed Universit y of Conjugate, PCV13 00:00:00 [place] [facility] (Prevnar 13) Branch Pneumococcal 13 2019-03-27 Completed Universit y of Conjugate, PCV13 00:00:00 [facility] dical (Prevnar 13) Branch Vital Signs Vital Name Observation Time Observation Value Comments Source Systolic blood 2020-09-28 16:00:00 133 [facility]Hg[facility] Diastolic blood 2020-09-28 16:00:00 94 mm[Hg] [facility] pressure [facility] Heart rate 2020-09-28 16:00:00 67 /min [facility] Oxygen saturation in 2020-09-28 16:00:00 99 /min [facility] Arterial blood by [facility] Pulse oximetry Branch Body temperature 2020-09-28 15:32:00 36.94 Aydee [facility] ersity of [place] [facility] Respiratory rate 2020-09-28 15:32:00 18 /min Univ ersity of [place] [facility] Body weight 2020-09-28 15:32:00 72.576 kg Universi ty of [place] [facility] BMI 2020-09-28 15:32:00 20.54 kg/m2 Universi ty [facility] [place] [facility] Systolic blood 2020-09-12 19:34:00 130 mm[Hg] Univer sity of pressure [place] [facility] Diastolic blood 2020-09-12 19:34:00 77 mm[Hg] Unive rsity of pressure [place] [facility] Heart rate 2020-09-12 19:34:00 68 /min Universi ty of [place] [facility] Body temperature 2020-09-12 19:34:00 36.72 Aydee Univ ersity of [place] [facility] Respiratory rate 2020-09-12 19:34:00 16 /min Univ ersity of [place] [facility] Body height 2020-09-12 19:34:00 188 cm Universi ty [facility] [place] [facility] Body weight 2020-09-12 19:34:00 68.312 kg [facility]i ty [facility] [place] [facility] BMI 2020-09-12 19:34:00 19.34 kg/m2 [facility]i ty [facility] [place] [facility] Systolic blood 2020-01-04 22:09:00 122 mm[Hg] Univer sity of pressure [place] [facility] Diastolic blood 2020-01-04 22:09:00 79 mm[Hg] Unive rsity of pressure [place] [facility] Heart rate 2020-01-04 22:09:00 69 /min [facility]i ty [facility] [place] [facility] Body temperature 2020-01-04 22:09:00 36.78 Aydee Univ ersity of [place] [facility] Respiratory rate 2020-01-04 22:09:00 16 /min Univ ersity of [place] [facility] Body height 2020-01-04 22:09:00 188 cm [facility]i [facility] [place] [facility] Body weight 2020-01-04 22:09:00 68.221 kg [facility]i ty [facility] [place] [facility] BMI 2020-01-04 22:09:00 19.31 kg/m2 [facility] [place] [facility] Systolic blood 2019-12-16 20:25:00 120 mm[Hg] Univer sity of pressure [place] [facility] Diastolic blood 2019-12-16 20:25:00 78 mm[Hg] Unive rsity of pressure [place] [facility] Heart rate 2019-12-16 20:25:00 88 /min [facility]i ty [facility] [place] [facility] Body temperature 2019-12-16 20:25:00 37 Aydee [facility] ersity of [place] [facility] Respiratory rate 2019-12-16 20:25:00 18 /min [facility] ersity of [place] [facility] Body height 2019-12-16 20:25:00 188 cm [facility]i ty [facility] [place] [facility] Body weight 2019-12-16 20:25:00 67.677 kg [facility]i [facility] [place] [facility] BMI 2019-12-16 20:25:00 19.16 kg/m2 [facility] [place] [facility] Oxygen saturation in 2019-12-16 20:25:00 100 /min [facility] Arterial blood by [facility] Pulse oximetry Branch Systolic blood 2019-06-05 19:17:00 107 mm[Hg] Univer sit of [facility] Diastolic blood 2019-06-05 19:17:00 65 mm[Hg] Unive rsity of pressure [facility] Heart rate 2019-06-05 19:17:00 73 /min [facility]i ty [facility] [place] [facility] Body temperature 2019-06-05 19:17:00 36.61 Aydee [facility] ersity of [place] [facility] Respiratory rate 2019-06-05 19:17:00 12 /min [facility] ersity of [place] [facility] Body height 2019-06-05 19:17:00 188 cm [facility]i [facility] [place] [facility] Body weight 2019-06-05 19:17:00 67.178 kg [facility] [place] [facility] BMI 2019-06-05 19:17:00 19.01 kg/m2 [facility] [place] [facility] Procedures Procedure Date / Time Performing Clinician Source Performed NOTICE OF PRIVACY 2020-09-28 15:22:35 Doctor Unassigned, No Univ [facility] PRACTICES Name Medical Branch CONSENT/REFUSAL FOR 2020-09-28 15:21:52 [facility]AT[facility] Name Medical Branch XR Finger(s) Lt Min 2 2020-09-24 18:11:[address] [facility] [facility] (Kofi) ASSIGNMENT OF BENEFITS 2020-09-12 19:29:48 Doctor Unassigned, No [facility] Name Medical Branch REFERRAL- 2020-06-10 05:01:00 Doctor Unassigned, No [facility] REQUEST/RESPONSE Name Medical Branch COMPREHENSIVE 2020-04-28 17:12:00 [facility] [place] METABOLIC$PANEL W/EGFR-Q [facility] POCT GRP A STREP 2019-12-16 21:01:00 Abdoul Gaming [facility] (MOLECULAR) [facility] POCT FLU A AND B 2019-12-16 21:01:00 bAdoul Gaming [facility] (MOLECULAR) [facility] ASSIGNMENT OF BENEFITS 2019-07-11 21:08:11 Doctor Unassigned, No [facility] Encounters Start End Encounter Admission Attending Care Care Encounter Source Date/Time Date/Time Type Type Clinicians Facility Department ID 2021-12-28 Outpatient Judson, STLMLC STLMLC [id number] 08[facility]01 [facility] 2021-12-24 Outpatient Judson, STLMLC STLMLC [id number] 10:59[facility]00 [facility] 2021-12-16 Outpatient Judson, STLMLC STLC [id number] 14:21:52 Ana [id number] [facility] 2021-12-16 Outpatient Judson, STLMLC STLMLC [id number] 14:21:05 Ana [id number] [facility] 2021-12-16 Outpatient STLMLC STLMLC [id number] 14:18[facility]00 [id number] [facility] 2021-12-16 Outpatient STLMLC STLC [id number] 13:46:47 [id number] [facility] 2021-09-19 Emergency [facility] [id number] [facility] 2022-02-12 ambulatory STLMLC STLC [id number] [facility] 2021-12-24 2021-12-24 ambulatory STLMLC STLC [id number] [facility] 2021-03-07 2021-03-07 Outpatient Kezia BRAXTON [facility] [id number] Univers 13:00:00 13:00:00 VINCENZO [facility] 2021-03-04 2021-03-04 Outpatient Kezia BRAXTON, [facility] [id number] Univers 11:20:00 11:20:00 VINCENZO ity [facility] 2021-02-11 2021-02-11 Outpatient [facility] [id number] Univers 11:20:00 11:20:00 ity [facility] 2021-01-20 2021-01-20 Outpatient LAURA [facility] [id number] [place] 00:00:00 00:00:[address] SON[address] 2020-12-15 2020-12-15 Outpatient Kezia NGUYEN, [facility] [id number] Univers 13:00:00 13:00:00 JOSE [id number] [facility] 2020-09-28 2020-09-28 Emergency [facility] [id number] Univers 09:31:00 10:18:00 Floyd Cardenas 350.1.13.10 i ty of [place] 4.2.7.2.686 [facility] [id number] [facility] 084 Branch 2020-09-28 2020-09-28 Orders Doctor GEETHA 1.2.840.114 [id number] Univers 00:00:00 00:00:00 Only Unassigned, DUSTY 350.1.13.10 ity of [place] [facility] 4.2.7.2.686 [facility] [phone] [facility] 009 Branch 2020-09-24 2020-09-24 Departed [facility] [id number] 16:42:00 19:28:00 Emergency [facility]-EMERGEN [place] [facility] (Mo rosario) 2020-09-24 2020-09-24 Emergency ER Provider, [facility] [id number] 16:42:00 16:42:00 Express -[id number] [facility] (Kofi) 2020-09-12 2020-09-12 Slp [facility] UNIVERSIT 1.2.840.114 [id number] Univers 15:49:25 15:52:33 Visit Jose Nguyen HEALTH 350.1.13.10 ity of [place]2.[place] [id number] [facility] [address] [place] 2020-09-12 2020-09-12 Slp [facility] UNIVERSIT 1.2.840.114 [id number] 15:49:25 15:52:33 Visit Y HEALTH 350.1.13.10 CLINICS 4.2.7.2.686 [id number] 316 2020-09-12 2020-09-12 Office [place], UNIVERSIT [id number] Univers 14:30:10 15:44:45 Visit Jose Forman HEALTH 350.1.13.10 i ty [place] [id number] [facility] [address] [place] 2020-09-12 2020-09-12 Outpatient R [facility]3] [id number] Univers 14:30:00 14:30:00 [facility] [id number] [facility] 2020-09-12 2020-09-12 Outpatient R [facility]3] [id number] Univers 14:30:00 14:30:00 JOSE [facility] 2020-09-12 2020-09-12 Orders Doctor INIGUEZ 1.2.840.114 [id number] Univers 00:00:00 00:00:00 Only Unassigned, DUSTY 350.1.13.10 ity of [place] [facility] 4.2.7.2.686 [place] [id number] [facility] [address] [place] 2020-09-12 2020-09-12 Orders Doctor GEETHA 1.2.840.114 [id number] 00:00:00 00:00:00 Only Unassigned, DUSTY 350.1.13.10 [place] [facility] 4.2.7.2.686 [id number] 2020-08-21 2020-08-21 Outpatient R [facility]3] [id number] Univers 11:30:00 11:30:00 [facility] 2020-08-21 2020-08-21 Outpatient R [facility]3] [id number] Univers 11:30:00 11:30:00 JOSE [facility] 2020-06-10 2020-06-10 Orders Doctor GEETHA 1.2.840.114 [id number] Univers 00:00:00 00:00:00 Only Unassigned, DUSTY 350.1.13.10 ity of [place] [facility] 4.2.7.2.686 [place] [id number] [address] 2020-06-10 2020-06-10 Orders Doctor GEETHA 1.2.840.114 [id number] 00:00:00 00:00:00 Only Unassigned, DUSTY 350.1.13.10 [place] [facility] 4.2.7.2.686 [id number] [facility] 2020-06-09 2020-06-09 Outpatient R [facility]3] [id number] Univers 16:00:00 16:00:00 JOSE son [facility] 2020-06-09 2020-06-09 [facility] 1.2.840.114 [id number] [facility] 10:24:29 10:54:29 ne Visit [facility] 350.1.13.10 ity of [place] [id number] [address] 2020-06-09 2020-06-09 Replaced by [facility] 1.2.840.114 [id number] 10:24:29 10:54:29 ne Visit [facility] 350.1.13.10 CLINICS 4.2.7.2.686 [id number] [facility] 2020-04-28 2020-04-28 Telephone [facility] 1.2.840.114 [id number] Univers 00:00:00 00:00:00 [facility] 350.1.13.10 i ty of [place] [id number] [address] 2020-04-28 2020-04-28 GEETHA Rose 1.2.840.114 [id number] Univers 00:00:00 00:00:00 Only Jose MONTANO 350.1.13.10 it y of HOSPITAL 4.2.7.2.686 [place] [id number] [address] 2020-04-28 2020-04-28 Telephone [facility], [facility] 1.2.840.114 [id number] 00:00:00 00:00:00 Jose Forman HEALTH 350.1.13.10 CLINICS 4.2.7.2.686 [id number] [facility] 2020-04-17 2020-04-17 Telephone [facility], [facility] 1.2.840.114 [id number] Univers 00:00:00 00:00:00 Jose Forman [facility] 350.1.13.10 i ty [place] [id number] [address] 2020-04-08 2020-04-08 [facility] [id number] Univers 00:00:00 00:00:00 Management Sheri Forman [facility] 350.1.13.10 ity [place] [id number] [address] 2020-01-04 2020-01-04 Outpatient R [facility]3] [id number] Univers 16:00:00 16:40:33 JOSE son [facility] 2020-01-04 2020-01-04 Office [facility] [id number] Univers 15:59:03 16:40:33 Visit Jose Forman [facility] 350.1.13.10 i ty [place] [id number] [address] 2019-12-16 2019-12-16 Urgent Abdoul Gaming [facility] 1.2.840.11 [id number] Univers 13:29:16 13:44:16 Care Unknown, Attending Health 350.1.13.10 ity of Surgical 4.2.7.2.686 [place] Specialti [id number] [address] 2019-12-08 2019-12-08 Orders PatrickGEETHA 1.2.840.114 [id number] Univers 00:00:00 00:00:00 Only Jose MONTANO 350.1.13.10 it y of HOSPITAL 4.2.7.2.686 [place] [id number] [facility] [address] [place] 2019-12-05 2019-12-05 Telephone [facility] 1.2.840.114 [id number] Univers 00:00:00 00:00:00 [facility] 350.1.13.10 i ty of [place] [id number] [facility] [address] 2019-07-11 2019-07-11 Slp 1, [facility] [place] 1.2.840.114 [id number] Univers 16:08:21 16:23:21 Visit Jose Nguyen 350.1.13.10 ity [place] 4[place]7.2.[place] [id number] [facility] [address] 2019-07-11 2019-07-11 Orders Doctor GEETHA 1.2.840.114 [id number] Univers 00:00:00 00:00:00 Only Unassigned, DUSTY 350.1.13.10 ity of [place] [facility] 4.2.7.2.686 [place] [id number] [facility] [address] [place] 2019-06-05 2019-06-05 Office [facility] [id number] [facility] 14:03:12 14:42:13 Visit Jose Y [facility] 350.1.13.10 i ty [place] [id number] [address] Results Test Description Test Time Test Comments Results Result Comments Source COMPREHENSIVE METABOLIC$PANEL W/EGFR-Q 2020-04-29 06:00:00 Test Item Value Reference Range Interpretation Comme nts GLUCOSE-Q (test code = 82 mg/dL 65-99 ? Fasting 2345-7) reference inter alexis UREA NITROGEN (BUN)-Q 18 mg/dL 7-25 (test code = 3094-0) CREATININE-Q (test code = 1.17 mg/dL 0.6-1.35 2160-0) eGFR NON-AFR. AUSTRIAN-Q See_Comment [A utomated message] (test code = 86147-7) The sy stem which generated this result transmitted ref erence range: > OR = 6 0 mL/min/1.73m2. The reference range was not used to int erpret this result as normal/abnormal . eGFR -Q See_Comment [Au tomated message] (test code = 82176-7) The sy stem which generated this result transmitted ref erence range: > OR = 6 0 mL/min/1.73m2. The reference range was not used to int erpret this result as normal/abnormal . BUN/CREATININE RATIO-Q NOT APPLICABLE See_Comment [A utomated message] (test code = 3097-3) The sys tem which generated this result transmitted ref erence range: 6 - 22 ( calc). The reference r marito was not used to interpret this result as normal/abnor mal. SODIUM-Q (test code = 140 mmol/L 422-818 0967-2) POTASSIUM-Q (test code = 4.6 mmol/L 3.5-5.3 2823-3) CHLORIDE-Q (test code = 105 mmol/L 98-110 2075-0) CARBON DIOXIDE-Q (test 29 mmol/L 20-32 code = 8-9) CALCIUM-Q (test code = 9.8 mg/dL 8.6-10.3 66318-4) PROTEIN, TOTAL-Q (test 6.6 g/dL 6.1-8.1 code = 2885-2) ALBUMIN-Q (test code = 4.7 g/dL 3.6-5.1 1751-7) GLOBULIN-Q (test code = See_Comment [Au tomated message] 11395-2) The system Resultlyic h generated this result transmitted ref erence range: 1.9 - 3. 7 g/dL (calc). The ref erence range was not u sed to interpret this result as normal/abnor mal. ALBUMIN/GLOBULIN RATIO-Q See_Comment [A utomated message] (test code = 1759-0) The sys tem which generated this result transmitted ref erence range: 1.0 - 2. 5 (calc). The ref erence range was not u sed to interpret this result as normal/abnor mal. BILIRUBIN, TOTAL-Q (test 1.6 mg/dL 0.2-1.2 H code = 1975-2) ALKALINE PHOSPHATASE-Q 58 U/L 36-130 (test code = 6768-6) AST-Q (test code = 1920-8) 16 U/L 10-40 ALT-Q (test code = 1742-6) 11 U/L 9-46 IAN (test code = IAN) PERFORMED BY [employer] SACO; [address] [place] [address]; NANCY SANCHEZ MD Lab Interpretation (test Abnormal code = 45630-7) [facility] FLU A AND B (MOLECULAR)2019-12-16 21:01:00 Test Item Value Reference Range Interpretation Comments POCT INFLUENZA A (test code = neg Negative - Negative 3840) POCT INFLUENZA B (test code = neg Negative - Negative 3841) Lab Interpretation (test code = Normal 84681-7) [facility] GRP A STREP (MOLECULAR)2019-12-16 21:01:00 Test Item Value Reference Range Interpretation Comments POCT GP A STREP (test code = neg Negative - Negative 31822-1) Lab Interpretation (test code = Normal 51345-4) [facility] : 1990 [facility] Name: ASHLY CORTEZ [address] Phys: [place] [address] : 1990 Age: 29 SEX:M [phone] Exam Date: 09/24/20 Status: REG ER Acct: [id number] Loc: ERS Pt Unit #: [id number] Report #: [id number] CC: Scarlett Araujo PA-C IMAGING SERVICES REPORT Order # Category/Exam [id number] RAD/XR Finger(s) Lt Min 2 View ([id number]): . Results Exam: XR Finger(s) Lt Min 2 View HISTORY: Laceration to left fourth finger. COMPARISON: None FINDINGS: There is a soft tissue defectrelated to laceration involving the lateral aspect of the distal leftring finger at the level of thedistal interphalangeal joint. There is suggestion of an avulsion injury involving the lateral aspect of the base of the distal phalanx left ring finger. No additional fracture is seen, and there is no dislocation. IMPRESSION: Soft tissue defect/laceration involving the distal aspect of theleft ring finger with tiny avulsion injury involving the lateral aspect base of the distal phalanx left ring finger. Reported By: Derrick Hudson MD Electronically Signed Date/Time: 09/24/201851 Technologist: IPA Dictated Date/Time: 09/24/201849 Transcribed Date/Time:
[2022-03-05 19:46] LABS: Absolute Lymphocytes (CBC) 1.7 K/uL (0.7-4.9); Hematocrit 40.5 % (39.6-49.0); Lymphocytes % 23.3 % (15.3-44.8); MPV 9.1 fL (7.6-11.3); RBC Red Blood Cell Count 4.54 M/uL (4.33-5.43)
[2022-03-05 20:03] LABS: Albumin 4.7 g/dL (3.4-5.0); Bilirubin Total 1.2 mg/dL (0.2-1.0); Potassium 3.8 mmol/L (3.5-5.1); Protein, Total 7.2 g/dL (6.4-8.2)
--- NOTE | 2022-03-05 20:42 | RAD REPORT ---
EXAM DESCRIPTION: CTAbdomen Pelvis W Contrast - 03/05/2022 8:35 pm CLINICAL HISTORY: Abdominal pain. LLQ abdominal pain COMPARISON: No comparisons TECHNIQUE: Biphasic CT imaging of the abdomen and pelvis was performed with 100 ml non-ionic IV cont rast. All CT scans are performed using dose optimization technique as appropriate and may include automated exposure control or mA/KV adjustment according to patient size. FINDINGS: The lung bases are clear. The liver, spleen, pancreas, adrenal glands and kidneys are within normal limits. No bowel obstruction, free air, free fluid or abscess. The appendix is normal. No evidence of signi ficant lymphadenopathy. No suspicious bony findings. IMPRESSION: No acute intra-abdominal or pelvic finding.
--- NOTE | 2022-03-05 23:09 | ER ---
Nurse's Notes [facility] Name: Drew Shin Age: 31 yrs Sex: Male : 1990 Arrival Date: 03/05/2022 Time: 19:05 Bed 13 Private MD: Diagnosis: Abdominal pain, Generalized Presentation: 03/05 19:12 Chief complaint: Patient states: "I have been having GI problems lately and I have ab2 referral for Dr. Hernandez on March 25. But the past 4 days I have been having black tarry stools.". Coronavirus screen: Vaccine status: Patient reports receiving the 2nd dose of the covid vaccine. Client denies travel out of the [place] in the last 14 days. At this time, the client does not indicate any symptoms associated with coronavirus-19. Ebola Screen: Patient negative for fever greater than or equal to 101.5 degrees Fahrenheit, and additional compatible Ebola Virus Disease symptoms Patient denies exposure to infectious person. Patient denies travel to an Ebola-affected area in the 21 days before illness onset. No symptoms or risks identified at this time. Initial Sepsis Screen: Does the patient meet any 2 criteria? No. Patient's initial sepsis screen is negative. Does the patient have a suspected source of infection? No. Patient's initial sepsis screen is negative. Risk Assessment: Do you want to hurt yourself or someone else? Patient reports no desire to harm self or others. Onset of symptoms is unknown. 19:12 Method Of Arrival: Ambulatory ab2 19:12 Acuity: JANNETH 3 ab2 Triage Assessment: 19:13 General: Appears in no apparent distress. comfortable, Behavior is calm, cooperative, ab2 appropriate for age. Pain: Complains of pain in abdomen. Neuro: Level of Consciousness is awake, alert, obeys commands, Oriented to person, place, time, situation, Appropriate for age. Respiratory: Airway is patent Respiratory effort is even, unlabored, Respiratory pattern is regular, symmetrical. GI: Reports cramping, bloody stool, nausea. Historical: - Allergies: 19:11 No Known Allergies; ab2 - PMHx: 19:11 HIV; ab2 - Immunization history:: Adult Immunizations up to date. - Social history:: Smoking status: Patient denies any tobacco usage or history of. Screenin:38 Abuse screen: Denies threats or abuse. Nutritional screening: No deficits noted. ke1 Tuberculosis screening: No symptoms or risk factors identified. Fall Risk None identified. Assessment: 19:39 GI: Bowel sounds present X 4 quads. Abd is soft X 4 quads. ke1 19:39 General: Appears in no apparent distress. Behavior is appropriate for age. Pain: ke1 Complains of pain in abdomen Pain currently is 2 out of 10 on a pain scale. at worst was 5 out of 10 on a pain scale. level that patient reports is acceptable is 3 out of 10 on a pain scale. Quality of pain is described as sharp. Vital Signs: 19:12 BP 133 / 81; Pulse 86; Resp 17; Temp 98.5; Pulse Ox 100% ; Weight 65.77 kg; Height 6 ab2 ft. 2 in. (187.96 cm); Pain 0/10; 19:53 BP 130 / 80; Pulse 74; Resp 18; Pulse Ox 98% on R/A; ke1 21:18 BP 123 / 82; Pulse 69; Resp 18; Pulse Ox 98% on R/A; ke1 19:12 Body Mass Index 18.62 (65.77 kg, 187.96 cm) ab2 ED Course: 19:05 Patient arrived in ED. bp1 19:06 Edgar Gr PA is PHCP. [facility] 19:07 Justin Barcenas DO is Attending Physician. jmm 19:13 Triage completed. ab2 19:14 Arm band placed on right wrist. ab2 19:25 Konrad Coronado, MIRTA is Primary Nurse. ke1 19:38 Inserted saline lock: 20 gauge in right antecubital area, using aseptic technique. ke1 19:39 Bed in low position. Call light in reach. ke1 20:36 CT Abd/Pelvis - IV Contrast Only In Process Unspecified. EDMS 21:01 David García MD is Referral Physician. [facility] 21:17 No provider procedures requiring assistance completed. IV discontinued. ke1 Administered Medications: No medications were administered Outcome: 21:01 Discharge ordered by . jmm 21:17 Discharged to home ambulatory. ke1 21:17 Condition: good 21:17 Condition: good 21:17 Discharge instructions given to patient. 21:26 Patient left the ED. ke1 Signatures: Dispatcher [employer] EDMS Edgar Gr, PA PA jmm Daly Reid Alexis ab2 Konrad Coronado, RN RN ke1
--- NOTE | 2022-03-05 23:10 | EDPHYS ---
Physician Documentation [facility] Name: Drew Shin Age: 31 yrs Sex: Male : 1990 Arrival Date: 03/05/2022 Time: 19:05 Bed 13 Private MD: ED Physician Justin Barcenas HPI: 03/05 19:14 This 31 yrs old Male presents to ER via Ambulatory with complaints of Abdominal Pain, jmm Black/Tarry Stools. 19:14 The patient presents with abdominal pain. Onset: The symptoms/episode began/occurred jmm gradually, 3 month(s) ago. The symptoms do not radiate. Associated signs and symptoms: Pertinent positives: nausea and vomiting, blood in stools, diarrhea. The symptoms are described as achy, crampy. This is a 31-year-old male with history of HIV the presents emerged part with complaints of generalized abdominal pain, nausea, diarrhea beginning this past November but worsening over the past few days. Patient states lately he has had black tarry stools and has felt weak.. Historical: - Allergies: 19:11 No Known Allergies; ab2 - PMHx: 19:11 HIV; ab2 - Immunization history:: Adult Immunizations up to date. - Social history:: Smoking status: Patient denies any tobacco usage or history of. ROS: 19:14 Constitutional: Negative for fever, chills, and weight loss, Cardiovascular: Negative jmm for chest pain, palpitations, and edema, Respiratory: Negative for shortness of breath, cough, wheezing, and pleuritic chest pain. 19:14 Abdomen/GI: Positive for abdominal pain, black/tarry stool. 19:14 All other systems are negative. Exam: 19:14 Constitutional: This is a well developed, well nourished patient who is awake, alert, jmm and in no acute distress. Head/Face: atraumatic. Eyes: EOMI, no conjunctival erythema appreciated ENT: Moist Mucus Membranes Neck: Trachea midline, Supple Chest/axilla: Normal chest wall appearance and motion. Cardiovascular: Regular rate and rhythm. No edema appreciated Respiratory: Normal respirations, no respiratory distress appreciated Abdomen/GI: Non distended, soft Back: Normal ROM Skin: General appearance color normal MS/ Extremity: Moves all extremities, no obvious deformities appreciated, no edema noted to the lower extremities Neuro: Awake and alert Psych: Behavior is normal, Mood is normal, Patient is cooperative and pleasant Vital Signs: 19:12 BP 133 / 81; Pulse 86; Resp 17; Temp 98.5; Pulse Ox 100% ; Weight 65.77 kg; Height 6 ab2 ft. 2 in. (187.96 cm); Pain 0/10; 19:53 BP 130 / 80; Pulse 74; Resp 18; Pulse Ox 98% on R/A; ke1 21:18 BP 123 / 82; Pulse 69; Resp 18; Pulse Ox 98% on R/A; ke1 19:12 Body Mass Index 18.62 (65.77 kg, 187.96 cm) ab2 MDM: 19:14 Patient medically screened. [facility] 21:00 Data reviewed: vital signs, nurses notes. Counseling: I had a detailed discussion with [facility] the patient and/or guardian regarding: the historical points, exam findings, and any diagnostic results supporting the discharge/admit diagnosis, lab results, radiology results, the need for outpatient follow up, to return to the emergency department if symptoms worsen or persist or if there are any questions or concerns that arise at home. ED course: Patient is alert nontoxic in appearance in the ED. CT labs were unremarkable. Patient advised to follow-up with gastroenterology and otherwise given strict return precautions. Patient understood and agreed to plan of care.. 03/05 19:20 Order name: CBC with Diff; Complete Time: 20:01 [facility] 03/05 19:20 Order name: CMP; Complete Time: 20:13 [facility] 03/05 19:20 Order name: Lipase; Complete Time: 20:13 [facility] 03/05 19:20 Order name: IV Saline Lock; Complete Time: 19:38 [facility] 03/05 19:20 Order name: Labs collected and sent; Complete Time: 19:38 [facility] 03/05 19:23 Order name: CT Abd/Pelvis - IV Contrast Only; Complete Time: 20:50 [facility] Administered Medications: No medications were administered Disposition: 03/06 15:37 Co-signature as Attending Physician, Justin PENDLETON was immediately available on-site ms3 in the Emergency Department for consultation in the care of the patient.. Disposition Summary: 03/05/22 21:01 Discharge Ordered Location: Home [facility] Condition: Stable [facility] Diagnosis - Abdominal pain, Generalized [facility] Followup: [facility] - With: David García MD - When: 2 - 3 days - Reason: Recheck today's complaints, Continuance of care, Re-evaluation by your physician Discharge Instructions: - Discharge Summary Sheet [facility] - Abdominal Pain, Adult [facility] Forms: - Medication Reconciliation Form [facility] - Thank You Letter suzy - Antibiotic Education [facility] - Prescription Opioid Use [facility] Prescriptions: - Pepcid 20 mg Oral Tablet - take 1 tablet by ORAL route once daily; 20 tablet; Refills: 0, Product [facility] Selection Permitted - dicyclomine 20 mg Oral Tablet - take 1 tablet by ORAL route 4 times per day; 20 tablet; Refills: 0, Product [facility] Selection Permitted - ondansetron 4 mg Oral tablet,disintegrating - take 1 tablet by ORAL route every 4-6 hours; 20 tablet; Refills: 0, Product [facility] Selection Permitted Signatures: Dispatcher [employer] Edgar Rivas PA PA jmm Sims, Marcus, DO DO ms3 [place] ab2
[2022-03-06 01:26] VITALS: TEMP 98.5
[2022-03-06 01:28] VITALS: O2SAT 98
[2022-03-06 01:30] VITALS: BP 123/82
== END ==
LOC: ER 19:01
DX: R10.84 Generalized abdominal pain (principal); Z21 Asymptomatic human immunodeficiency virus [HIV] infection status
CPT/HCPCS: 85025; 36415; 83690; 80053; 74177; 99283; Q9967

== ENCOUNTER 2022-05-08 01:04 | Emergency (ER) | payer OTHER ==
--- OUTSIDE RECORDS SUMMARY | 2022-05-08 01:10 | XMS REPORT | Continuity of Care Document ---
:1990 Author Organization [facility] t Address [address] [place] [address] Dr. Javier. [address] [place] [address] Care Team Providers Name Role Phone Judson Attending Clinician Unavailable Sanjana BRAXTON Attending Clinician Unavailable LAURA Attending Clinician Unavailable PATRICK Attending Clinician Unavailable Singer SHAFER Attending Clinician Doctor Unassigned, Name Attending Clinician Unavailable Provider, Temp Attending Clinician Unavailable [place] Attending Clinician Unavailable Patrick MCMAHON Attending Clinician Thad Azar MA Attending Clinician Unavailable Mekhi BARAJAS E Attending Clinician Unknown Attending Clinician Unavailable 1, Lab Attending Clinician Unavailable Payers Payer Name Policy Type Policy Number Effective Date Expiration Date S donna [employer] BLUE [id number] 2019 ADVANTAGE O 00:00:00 ELIO CHRISTIANSONR FROM [id number] 2020 [facility] 00:00:00 Problems Condition Condition Condition Status Onset Resolution Last Treating Co mments Source Name Details Category Date Date Treatment Clinician Date 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 it y of ciency ciency 00:00: [place] virus virus 00 Medical infection) infection) Br anch Problem Condition [facility] (Kofi) Allergies, Adverse Reactions, Alerts Allergy Allergy Status Severity Reaction(s) Onset Inactive Treating Comm ents Source Name Type Date Date Clinician NO KNOWN Drug Active Univers ALLERGIE Class ity of S [facility] Social History Social Habit Start Date Stop Date Quantity Comments Source Exposure to Not sure University SARS-CoV-2 [facility] (event) [place] Alcohol intake 2020-06-09 2020-06-09 Current drinker Unive rsity of 00:00:00 00:00:00 of alcohol [facility] (finding) [place] Tobacco use and 2020-06-09 2020-06-09 Never used Universit y of exposure 00:00:00 00:00:00 [facility] Sex Assigned At [birth year] Male [facility] - 00:00:00 00:00:00 [place] (Robin albarado) Smoking Status Start Date Stop Date Source Unknown if ever smoked [facility] ([place]of[place]) Never smoker [facility] Medications Ordered Filled Start Stop Current Ordering Indication Dosage Frequency Signature Comments Components Source Medication Medication Date Date Medication? Clinician (SIG) Name Name diphenhydrA 2019-11- No 25mg 25 mg, Uni vers MINE 11-28 Oral, ity of (BENADRYL) 17:00: 15:54 ONCE, 1 [place] tablet 25 00 :00 dose, [facility] mg 09/28/20 at [place] 1100, KENDALL HYDROcodone 2019-11- No 1{tbl} 1 tablet, Univers -acetaminop 11-28 Oral, ity of hen (NORCO) 15:51: 15:54 [place]CE[place] 1 [place] 10[place]325 mg [place] :00 dose, [facility] tablet 1 09/28/20 at [facility] tablet 1000, Routine QUEtiapine 2020- No 50mg Take 50 mg Univers (SEROQUEL) -09 06- by mouth ity of 50 mg 21:25: 00:00 at [place] tablet 00 :00 bedtime. Medical Branch diazePAM 10 2020- No 10mg Take 10 mg Univers mg tablet -09 06-20 by mouth ity o f 21:24: 00:00 at [place] 53 :00 bedtime. Medical Branch predniSONE 2019-0 Yes [id number] 2 tabs Univers 20 mg 7-20 once daily ity of tablet 00:00: x 5 days [place] 00 [facility] predniSONE 2020-0 Yes [id number] 2 tabs Univers 20 mg 7-20 once daily ity of tablet 00:00: x 5 days [place] 00 [facility] predniSONE 2020-0 Yes [id number] 2 tabs Univers 20 mg 7-20 once daily ity of tablet 00:00: x 5 days [place] [facility] [place] predniSONE 2020-0 Yes [id number] 2 tabs Univers 20 mg 7-20 once daily ity of tablet 00:00: x 5 days [place] [facility] [place] predniSONE 2020-0 Yes [id number] 2 tabs Univers 20 mg 7-20 once daily ity of tablet 00:00: x 5 days [place] [facility] predniSONE 2020-0 Yes [id number] 2 tabs Univers 20 mg 7-20 once daily ity of tablet 00:00: x 5 days [place] [facility] predniSONE 2020-0 Yes [id number] 2 tabs Univers 20 mg 7-20 once daily ity of tablet 00:00: x 5 days [place] [facility] predniSONE 2020-0 Yes [id number] 2 tabs Univers 20 mg 7-20 once daily ity of tablet 00:00: x [address] temazepam 2020-0 2020- No 15mg Take 1 Unive rs 15 mg 7-20 07-20 capsule by ity of capsule 00:00: 00:00 mouth at [place] 00 :00 bedtime as Medical needed for Branch Insomnia. temazepam 2020-0 Yes TK 1 C PO Uni vers 15 mg 7-01 QD HS ity of capsule 00:00: [address] temazepam 2020-0 Yes TK 1 C PO Uni vers 15 mg 7-01 QD HS ity of capsule 00:00: [address] temazepam 2020-0 Yes TK 1 C PO Uni vers 15 mg 7-01 QD HS ity of capsule 00:00: [address] temazepam 2020-0 Yes TK 1 C PO Uni vers 15 mg 7-01 QD HS ity of capsule 00:00: [address] temazepam 2020-0 Yes TK 1 C PO Uni vers 15 mg 7-01 QD HS ity of capsule 00:00: [address] temazepam 2020-0 Yes TK 1 C PO Uni vers 15 mg 7-01 QD HS ity of capsule 00:00: [address] temazepam 2020-0 Yes TK 1 C [...] 2-14 by mouth ity of 22:12: at [place] 24 bedtime. Medical Branch QUEtiapine 2020-0 Yes [...] 2-14 by mouth ity of 22:12: at [place] 24 bedtime. Medical Branch QUEtiapine 2020-0 Yes 50mg Take 50 mg U nivers (SEROQUEL) 2-14 by mouth ity o f 50 mg 22:12: at [place] tablet 24 bedtime. Medical Branch diazePAM 10 2020-0 Yes 10mg Take 10 mg Univers mg tablet 2-14 by mouth ity of 22:12: at [place] 24 bedtime. Medical Branch QUEtiapine 2020-0 Yes [...] 24 bedtime. Medical Branch bictegrav-e 2020-0 Yes [id number] 1{tbl} Take 1 Univers mtricit-ten 2-14 tablet by ity of ofov ala 00:00: mouth [place] (BIKTARVY) 00 daily. Medical 50-200-25 Take on Branch mg tablet 50/200/25 mg tablet once daily bictegrav-e 2020-0 Yes [id number] 1{tbl} Take 1 Univers mtricit-ten 2-14 tablet by ity of ofov ala 00:00: mouth [place] (BIKTARVY) 00 daily. Medical 50-200-25 Take on Branch mg tablet 50/200/25 mg tablet once daily bictegrav-e 2020-0 Yes [id number] 1{tbl} Take 1 Univers mtricit-ten 2-14 tablet by ity of ofov ala 00:00: mouth [place] (BIKTARVY) 00 daily. Medical 50-200-25 Take on Branch mg tablet 50/200/25 mg tablet once daily bictegrav-e 2020-0 Yes [id number] 1{tbl} Take 1 Univers mtricit-ten 2-14 tablet by ity of ofov ala 00:00: mouth [place] (BIKTARVY) 00 daily. Medical 50-200-25 Take on Branch mg tablet 50/200/25 mg tablet once daily bictegrav-e 2020-0 Yes [id number] 1{tbl} Take 1 Univers mtricit-ten 2-14 tablet by ity of ofov ala 00:00: mouth [place] (BIKTARVY) 00 daily. Medical 50-200-25 Take on Branch mg tablet 50/200/25 mg tablet once daily bictegrav-e 2020-0 Yes [id number] 1{tbl} Take 1 Univers mtricit-ten 2-14 tablet by ity of ofov ala 00:00: mouth [place] (BIKTARVY) 00 daily. Medical 50-200-25 Take on Branch mg tablet 50/200/25 mg tablet once daily bictegrav-e 2020-0 Yes [id number] 1{tbl} Take 1 Univers mtricit-ten 2-14 tablet by ity of ofov ala 00:00: mouth [place] (BIKTARVY) 00 daily. Medical 50-200-25 Take on Branch mg tablet 50/200/25 mg tablet once daily bictegrav-e 2020-0 Yes [id number] 1{tbl} Take 1 Univers mtricit-ten 2-14 tablet by ity of ofov ala 00:00: mouth [place] (BIKTARVY) 00 daily. Medical 50-200-25 Take on Branch mg tablet 50/200/25 mg tablet once daily bictegrav-e 2020-0 Yes [id number] 1{tbl} Take 1 Univers mtricit-ten 2-14 tablet by ity of ofov ala 00:00: mouth [place] (BIKTARVY) 00 daily. Medical 50-200-25 Take on Branch mg tablet 50/200/25 mg tablet once daily bictegrav-e 2020-0 Yes [id number] 1{tbl} Take 1 Univers mtricit-ten 2-14 tablet by ity of ofov ala 00:00: mouth [place] (BIKTARVY) 00 daily. Medical 50-200-25 Take on Branch mg tablet 50/200/25 mg tablet once daily bictegrav-e 2020-0 Yes [id number] 1{tbl} Take 1 Univers mtricit-ten 2-14 tablet by ity of ofov ala 00:00: mouth [place] (BIKTARVY) 00 daily. Medical 50-200-25 Take on Branch mg tablet 50/200/25 mg tablet once daily bictegrav-e 2020-0 Yes [id number] 1{tbl} Take 1 Univers mtricit-ten 2-14 tablet by ity of ofov ala 00:00: mouth [place] (BIKTARVY) 00 daily. Medical 50-200-25 Take on Branch mg tablet 50/200/25 mg tablet once daily bictegrav-e 2020-0 Yes [id number] 1{tbl} Take 1 Univers mtricit-ten 2-14 tablet by ity of ofov ala 00:00: mouth [place] (BIKTARVY) 00 daily. Medical 50-200-25 Take on Branch mg tablet 50/200/25 mg tablet once daily bictegrav-e 2020-0 Yes [id number] 1{tbl} Take 1 Univers mtricit-ten 2-14 tablet by ity of ofov ala 00:00: mouth [place] (BIKTARVY) 00 daily. Medical 50-200-25 Take on Branch mg tablet 50/200/25 mg tablet once daily bictegrav-e 2020-0 Yes [id number] 1{tbl} Take 1 Univers mtricit-ten 2-14 tablet by ity of ofov ala 00:00: mouth [place] (BIKTARVY) 00 daily. Medical 50-200-25 Take on Branch mg tablet 50/200/25 mg tablet once daily bictegrav-e 2020-0 Yes [id number] 1{tbl} Take 1 Univers mtricit-ten 2-14 tablet by ity of ofov ala 00:00: mouth [place] (BIKTARVY) 00 daily. Medical 50-200-25 Take on Branch mg tablet 50/200/25 mg tablet once daily bictegrav-e 2020-0 Yes [id number] 1{tbl} Take 1 Univers mtricit-ten 2-14 tablet by ity of ofov ala 00:00: mouth [place] (BIKTARVY) 00 daily. Medical 50-200-25 Take on Branch mg tablet 50/200/25 mg tablet once daily metoclopram 2020-0 Yes [id number] 1 tab Univers krish HCl 10 1-26 every 4hr ity of mg tablet 00:00: as needed [place] 00 for nausea Medical Branch metoclopram 2020-0 Yes [id number] 1 tab Univers krish HCl 10 1-26 every 4hr ity of mg tablet 00:00: as needed [place] 00 for nausea Medical Branch metoclopram 2020-0 Yes [id number] 1 tab Univers krish HCl 10 1-26 every 4hr ity of mg tablet 00:00: as needed [place] 00 for nausea Medical Branch metoclopram 2020-0 Yes [id number] 1 tab Univers krish HCl 10 1-26 every 4hr ity of mg tablet 00:00: as needed [place] 00 for nausea Medical Branch metoclopram 2020-0 Yes [id number] 1 tab Univers krish HCl 10 1-26 every 4hr ity of mg tablet 00:00: as needed [place] 00 for nausea Medical Branch metoclopram 2020-0 Yes [id number] 1 tab Univers krish HCl 10 1-26 every 4hr ity of mg tablet 00:00: as needed [place] 00 for nausea Medical Branch metoclopram 2020-0 Yes [id number] 1 tab Univers krish HCl 10 1-26 every 4hr ity of mg tablet 00:00: as needed [place] 00 for nausea Medical Branch metoclopram 2020-0 Yes [id number] 1 tab Univers krish HCl 10 1-26 every 4hr ity of mg tablet 00:00: as needed [place] 00 for nausea Medical Branch metoclopram 2020-0 Yes [id number] 1 tab Univers krish HCl 10 1-26 every 4hr ity of mg tablet 00:00: as needed [place] 00 for nausea Medical Branch metoclopram 2020-0 Yes [id number] 1 tab Univers krish HCl 10 1-26 every 4hr ity of mg tablet 00:00: as needed [place] 00 for nausea Medical Branch metoclopram 2020-0 2020- No [id number] 1 tab Univers krish HCl 10 1-26 07-20 every 4hr ity of mg tablet 00:00: [place]:00 [place] :00 for nausea Medical Branch bictegrav-e 2018- Yes [id number] 1{tbl} Take 1 Univers mtricit-ten 0-22 tablet by ity of ofov ala 00:00: mouth [place] (BIKTARVY) 00 daily. Medical 50-200-25 Take on Branch mg tablet 50/200/25 mg tablet once daily bictegrav-e 2018- Yes [id number] 1{tbl} Take 1 Univers mtricit-ten 0-22 tablet by ity of ofov ala 00:00: mouth [place] (BIKTARVY) 00 daily. Medical 50-200-25 Take on Branch mg tablet 50/200/25 mg tablet once daily bictegrav-e 2018-11 Yes [id number] 1{tbl} Take 1 Univers mtricit-ten 0-22 tablet by ity of ofov ala 00:00: mouth [place] (BIKTARVY) 00 daily. Medical 50-200-25 Take on Branch mg tablet 50/200/25 mg tablet once daily bictegrav-e 2018-11 Yes [id number] 1{tbl} Take 1 Univers mtricit-ten 0-22 tablet by ity of ofov ala 00:00: mouth [place] (BIKTARVY) 00 daily. Medical 50-200-25 Take on Branch mg tablet 50/200/25 mg tablet once daily bictegrav-e 2018-11 Yes [id number] 1{tbl} Take 1 Univers mtricit-ten 0-22 tablet by ity of ofov ala 00:00: mouth [place] (BIKTARVY) 00 daily. Medical 50-200-25 Take on Branch mg tablet 50/200/25 mg tablet once daily bictegrav-e 2018-11 Yes [id number] 1{tbl} Take 1 Univers mtricit-ten 0-22 tablet by ity of ofov ala 00:00: mouth [place] (BIKTARVY) 00 daily. Medical 50-200-25 Take on Branch mg tablet 50/200/25 mg tablet once daily bictegrav-e 2018-11 2020- No [id number] 1{tbl} Take 1 Univers mtricit-ten 0-22 02-14 tablet by it y of ofov ala 00:00: 00:00 mouth [place] (BIKTARVY) 00 :00 daily. Medical 50-200-25 Take on Branch mg tablet 50/200/25 mg tablet once daily bictegrav-e 2018-11 2020- No [id number] 1{tbl} Take 1 Univers mtricit-ten 0-22 02-14 tablet by it y of ofov ala 00:00: 00:00 mouth [place] (BIKTARVY) 00 :00 daily. Medical 50-200-25 Take on Branch mg tablet 50/200/25 mg tablet once daily dutasteride 2019-0 Yes .5mg Take 1 Univ [...] mouth [place] 00 daily. Medical Branch eszopiclone 2018- Yes 3mg Take 1 Univ ers (LUNESTA) [...] [place] 00 bedtime. [place] [facility] dutasteride Yes .5mg Take 1 Univ ers [...] 00 daily. Medical Branch bictegrav-e 2018-0 Yes [id number] 50mg Take 50 mg Univers mtricit-ten 4-23 by mouth ity of ofov ala 00:00: daily. (BIKTARVY) 00 Take on Medica l 50-200-25 50/200/25 Branc h mg Tab mg tablet once daily dutasteride Yes .5mg [...] mouth [place] 00 daily. Medical Branch dutasteride 2019-0 Yes .5mg Take 1 Univ [...] mouth [place] 00 daily. Medical Branch bictegrav-e 2018- Yes [id number] 50mg Take 50 mg Univers mtricit-ten 4-23 by mouth ity of ofov ala 00:00: daily. (BIKTARV) 00 Take on Medica l 50-200-25 50/200/25 [...] [place] 00 bedtime. [facility] bictegrav-e 2019-0 Yes [id number] 50mg Take 50 mg Univers mtricit-ten 4-23 by mouth ity of ofov ala 00:00: daily. [place] (BIKTARVY) 00 Take on Medica l 50-200-25 [...] mouth [place] 00 daily. Medical Branch eszopiclone 2019- Yes 3mg Take 1 Univ ers (LUNESTA) 3 4-23 tablet by ity of mg tablet 00:00: [place] bedtime. Medical Branch methylpheni Yes 10mg Take 1 Univ ers date HCl 4-23 capsule by ity o f (RITALIN 00:00: mouth [place]) 10 mg 00 every Medical 24 hr morning. Branch capsule dutasteride 2019- Yes .5mg Take 1 Univ ers 0.5 [...] Medical 24 hr morning. Branch capsule eszopiclone 2020- No 3mg Take 1 Uni vers (LUNESTA) 3 4-23 07-20 tablet by it y of mg tablet 00:00: 00:00 mouth at [place] 00 :00 bedtime. Medical Branch Immunizations Ordered Filled Immunization Date Status Comments [facility] e Immunization Name Name Influenza Virus 2020-08-22 Completed Universit y of Vaccine 00:00:00 [place] [facility] Influenza Virus 2020-08-22 Completed Universit y of Vaccine 00:00:00 [facility] Influenza Virus 2020-08-22 Completed Universit y of Vaccine 00:00:00 [facility] Influenza Virus 2020-08-22 Completed Universit y of Vaccine 00:00:00 [facility] Influenza Virus 2020-08-22 Completed Universit y of Vaccine 00:00:00 [facility] Influenza Virus 2019-08-02 Completed Universit y of Vaccine 00:00:00 [facility] Influenza Virus 2019-08-02 Completed Universit y of Vaccine 00:00:00 [facility] Influenza Virus 2019-08-02 Completed Universit y of Vaccine 00:00:00 [facility] Influenza Virus 2019-08-02 Completed Universit y of Vaccine 00:00:00 [facility] Influenza Virus 2019-08-02 Completed Universit y of Vaccine 00:00:00 [facility] Influenza Virus 2019-08-02 Completed Universit y of Vaccine 00:00:00 [facility] Influenza Virus 2019-08-02 Completed Universit y of Vaccine 00:00:00 [facility] Influenza Virus 2019-08-02 Completed Universit y of Vaccine 00:00:00 [facility] Influenza Virus 2019-08-02 Completed Universit y of Vaccine 00:00:00 [facility] Influenza Virus 2019-08-02 Completed Universit y of Vaccine 00:00:00 [facility] Influenza Virus 2019-08-02 Completed Universit y of Vaccine 00:00:00 [facility] Influenza Virus 2019-08-02 Completed Universit y of Vaccine 00:00:00 [facility] Influenza Virus 2019-08-02 Completed Universit y of Vaccine 00:00:00 [facility] Influenza Virus 2019-08-02 Completed Universit y of Vaccine 00:00:00 [facility] Influenza Virus 2019-08-02 Completed Universit y of Vaccine 00:00:00 [facility] Influenza Virus 2019-08-02 Completed Universit y of Vaccine 00:00:00 [facility] Influenza Virus 2019-08-02 Completed Universit y of Vaccine 00:00:00 [facility] Influenza Virus 2019-08-02 Completed Universit y of Vaccine 00:00:00 [facility] Influenza Virus 2019-08-02 Completed Universit y of Vaccine 00:00:00 [facility] Influenza Virus 2019-08-02 Completed Universit y of Vaccine 00:00:00 [facility] Influenza Virus 2019-08-02 Completed Universit y of Vaccine 00:00:00 [facility] Influenza Virus 2019-08-02 Completed Universit y of Vaccine 00:00:00 [facility] Influenza Virus 2019-08-02 Completed Universit y of Vaccine 00:00:00 [facility] Pneumococcal 13 2019-03-27 Completed Universit y of Conjugate, PCV13 00:00:00 [place] Me dical (Prevnar 13) Branch Pneumococcal 13 2019-03-27 Completed Universit y of Conjugate, PCV13 00:00:00 [place] Me dical (Prevnar 13) Branch Pneumococcal 13 2019-03-27 Completed Universit y of Conjugate, PCV13 00:00:00 [place] Me dical (Prevnar 13) Branch Pneumococcal 13 2019-03-27 Completed Universit y of Conjugate, PCV13 00:00:00 [place] Me dical (Prevnar 13) Branch Pneumococcal 13 [...] Completed Universit y of Conjugate, PCV13 00:00:00 [facility] dical (Prevnar 13) Branch Pneumococcal 13 2019-03-27 Completed Universit y of Conjugate, PCV13 00:00:00 [place] Me dical (Prevnar 13) Branch Pneumococcal 13 2019-03-27 Completed Universit y of Conjugate, PCV13 00:00:00 [place] Me dical (Prevnar 13) Branch Pneumococcal 13 2019-03-27 Completed Universit y of Conjugate, PCV13 00:00:00 [facility] dical (Prevnar 13) Branch Pneumococcal 13 2019-03-27 Completed Universit y of Conjugate, PCV13 00:00:00 [facility] dical (Prevnar 13) Branch Pneumococcal 13 2019-03-27 Completed Universit y of Conjugate, PCV13 00:00:00 [facility] dical (Prevnar 13) Branch Pneumococcal 13 2019-03-27 Completed Universit y of Conjugate, PCV13 00:00:00 [place] Me dical (Prevnar 13) Branch Pneumococcal 13 2019-03-27 Completed Universit y of Conjugate, PCV13 00:00:00 [facility] dical (Prevnar 13) Branch Pneumococcal 13 2019-03-27 Completed Universit y of Conjugate, PCV13 00:00:00 [facility] dical (Prevnar 13) Branch Pneumococcal 13 2019-03-27 Completed Universit y of Conjugate, PCV13 00:00:00 [facility] dical (Prevnar 13) Branch Vital Signs Vital Name Observation Time Observation Value Comments Source Systolic blood 2020-09-28 16:00:00 133 mm[Hg] Univer sity of pressure [facility] Diastolic blood 2020-09-28 16:00:00 94 mm[Hg] Unive rsity of pressure [facility] Heart rate 2020-09-28 16:00:00 67 /[facility] Oxygen saturation in 2020-09-28 16:00:00 99 /min [facility] Arterial blood by [facility] Pulse oximetry Branch Body temperature 2020-09-28 15:32:00 36.94 Aydee Univ ersity of [place] [facility] Respiratory rate 2020-09-28 15:32:00 18 /min Univ ersity of [place] [facility] Body weight 2020-09-28 15:32:00 72.576 kg Universi ty [facility] [place] [facility] BMI 2020-09-28 15:32:00 20.54 kg/m2 [facility]i ty [facility] [place] [facility] Systolic blood 2020-09-12 19:34:00 130 mm[Hg] Univer sity of pressure [place] [facility] Diastolic blood 2020-09-12 19:34:00 77 mm[Hg] Unive rsity of pressure [place] [facility] Heart rate 2020-09-12 19:34:00 68 /min Universi ty of [place] [facility] Body temperature 2020-09-12 19:34:00 36.72 Aydee Univ ersity of [place] [facility] Respiratory rate 2020-09-12 19:34:00 16 /min Univ ersity of [place] [facility] Body height 2020-09-12 19:34:00 188 cm [facility]i ty [facility] [place] [facility] Body weight 2020-09-12 19:34:00 68.312 kg Universi ty [facility] [place] [facility] BMI 2020-09-12 19:34:00 19.34 kg/m2 [facility]i ty [facility] [place] [facility] Systolic blood 2020-01-04 22:09:00 122 mm[Hg] Univer sity of pressure [place] [facility] Diastolic blood 2020-01-04 22:09:00 79 mm[Hg] Unive rsity of pressure [place] [facility] Heart rate 2020-01-04 22:09:00 69 /min Universi ty [facility] [place] [facility] Body temperature 2020-01-04 22:09:00 36.78 Aydee Univ ersity of [place] [facility] Respiratory rate 2020-01-04 22:09:00 16 /min Univ ersity of [place] [facility] Body height 2020-01-04 22:09:00 188 cm Universi ty of [place] [facility] Body weight 2020-01-04 22:09:00 68.221 kg [facility]i ty [facility] [place] [facility] BMI 2020-01-04 22:09:00 19.31 kg/m2 [facility]i [facility] [place] [facility] Systolic blood 2019-12-16 20:25:00 120 mm[Hg] Univer sity of pressure [place] [facility] Diastolic blood 2019-12-16 20:25:00 78 mm[Hg] Unive rsity of pressure [place] [facility] Heart rate 2019-12-16 20:25:00 88 /min Universi ty [facility] [place] [facility] Body temperature 2019-12-16 20:25:00 37 Aydee Univ ersity of [place] [facility] Respiratory rate 2019-12-16 20:25:00 18 /min Univ ersity of [place] [facility] Body height 2019-12-16 20:25:00 188 cm [facility]i ty [facility] [place] [facility] Body weight 2019-12-16 20:25:00 67.677 kg Universi ty [facility] [place] [facility] BMI 2019-12-16 20:25:00 19.16 kg/m2 [facility]i ty [facility] [place] [facility] Oxygen saturation in 2019-12-16 20:25:00 100 /min [facility] Arterial blood by [facility] Pulse oximetry Branch Systolic blood 2019-06-05 19:17:00 107 mm[Hg] Univer sity of [facility] [place] Diastolic blood 2019-06-05 19:17:00 65 mm[Hg] Unive rsity of pressure [place] [facility] Heart rate 2019-06-05 19:17:00 73 /min [facility]i ty [facility] [place] [facility] Body temperature 2019-06-05 19:17:00 36.61 Aydee [facility] ersity of [place] [facility] Respiratory rate 2019-06-05 19:17:00 12 /min Univ ersity of [facility] Body height 2019-06-05 19:17:00 188 cm Universi ty [facility] [place] [facility] Body weight 2019-06-05 19:17:00 67.178 kg [facility]i ty [facility] [place] [facility] [place] BMI 2019-06-05 19:17:00 19.01 kg/m2 [facility] [place] [facility] Procedures Procedure Date / Time Performing Clinician Source Performed NOTICE OF PRIVACY 2020-09-28 15:22:35 Doctor Unassigned, No [facility] PRACTICES Name Medical Branch CONSENT/REFUSAL FOR 2020-09-28 15:21:52 [facility] Name Medical Branch XR Finger(s) Lt Min 2 2020-09-24 18:11:00 [facility] ([place]ofi) ASSIGNMENT OF BENEFITS 2020-09-12 19:29:48 Doctor Unassigned, No [facility] Name Medical Branch REFERRAL- 2020-06-10 05:01:00 Doctor Unassigned, No [facility] REQUEST/RESPONSE Name Medical Branch COMPREHENSIVE 2020-04-28 17:12:00 [facility] [place] METABOLIC$PANEL W/EGFR-Q Medical Branch POCT GRP A STREP 2019-12-16 21:01:00 [employer] [facility] (MOLECULAR) [facility] POCT FLU A AND B 2019-12-16 21:01:00 [employer] [facility] (MOLECULAR) [facility] ASSIGNMENT OF BENEFITS 2019-07-11 21:08:11 Doctor Unassigned, No [facility] Name Medical Branch Encounters Start End Encounter Admission Attending Care Care Encounter Source Date/Time Date/Time Type Type Clinicians Facility Department ID 2021-12-28 [facility] [place], STLMLC STLMLC [id number] Common 08:44:01 [facility] 2021-12-24 [facility] [place], STLMLC ST[facility]C [id number] Common 10:59:00 Ana [facility] 2021-12-16 Outpatient Galt, STLMLC STLMLC [id number] Common 14:21:52 Ana 40963 [facility] 2021-12-16 Outpatient [place], STLMLC STLMLC [id number] Common 14:21:05 Ana 52183 [facility] 2021-12-16 Outpatient STLMLC STLMLC [id number] Common 14:18:00 11648 [facility] 2021-12-16 Outpatient STLMLC STLMLC [id number] Common 13:46:47 21301 [facility] 2021-09-[address] [facility] [id number] [facility]22-02-12 ambulatory STLMLC STLMLC [id number] Common 00:00:00 00:00:00 [facility] 2021-12-24 2021-12-24 ambulatory STLMLC STLMLC [id number] Common 00:00:00 00:00:00 [facility] 2021-03-07 2021-03-07 Outpatient Kezia BRAXTON, [facility] [id number] Univers 13:00:00 13:00:00 VINCENZO ity [facility] 2021-03-04 2021-03-04 Outpatient R IRAIS, [facility] [id number] Univers 11:20:00 11:20:00 VINCENZO ity [facility] 2021-02-11 2021-02-[address] [facility] [id number] Univers 11:20:00 11:20:00 ity [facility] 2021-01-20 2021-01-20 Outpatient [facility]URA [facility] [id number] 00:00:00 00:00:00 DavidMAGALY [address] 2020-12-15 2020-12-15 Outpatient Kezia NGUYEN, [facility] [id number] Univers 13:00:00 13:00:00 [facility] [id number] [facility] 2020-09-28 2020-09-28 Emergency [facility] [id number] Univers 09:31:00 10:18:00 Floyd Cardenas 350.1.13.10 i ty of [place] 4.2.7.2.686 [facility] [id number] [facility] [address] 2020-09-28 2020-09-28 Orders Doctor GEETHA 1.2.840.114 [id number] Univers 00:00:00 00:00:00 Only Unassigned, DUSTY 350.1.13.10 ity of [place] [facility] 4.2.7.2.686 Sajan [id number] [facility] [address] 2020-09-24 2020-09-24 Departed [facility] [id number] 16:42:00 19:28:00 Emergency [facility] 26 Maya es - [facility]EMERGEN Costa ph CY SERVICES (Mo an) 2020-09-24 2020-09-24 Emergency ER Provider, [facility] [id number] 16:42:00 16:42:00 Express -[id number] [facility] Samir Kofi 2020-09-12 2020-09-12 Press Operator Heavy Duty [place] 1.2.840.114 [id number] Univers 15:49:25 15:52:33 Visit Jose Nguyen HEALTH 350.1.13.10 [place] [id number] [facility] [address] 2020-09-12 2020-09-12 Press Operator [employer] Duty [place] 1.2.840.114 [id number] 15:49:25 15:52:33 Visit Y HEALTH 350.1.13.10 CLINICS 4.2.7.2.686 [id number] 316 2020-09-12 2020-09-12 Office [place], [facility] [id number] Univers 14:30:10 15:44:45 Visit Jose Forman HEALTH 350.1.13.10 i ty [place] [id number] [facility] [address] 2020-09-12 2020-09-12 Outpatient R [facility] [id number] Univers 14:30:00 14:30:00 [facility] [id number] [facility] 2020-09-12 2020-09-12 Outpatient R [facility] [id number] Univers 14:30:00 14:30:00 JOSE [facility] 2020-09-12 2020-09-12 Orders Doctor GEETHA 1.2.840.114 [id number] Univers 00:00:00 00:00:00 Only Unassigned, DUSTY 350.1.13.10 ity of [place] [facility] 4.2.7.2.686 Sajan as [id number] [facility] [address] 2020-09-12 2020-09-12 Orders Doctor GEETHA 1.2.840.114 [id number] 00:00:00 00:00:00 Only Unassigned, DUSTY 350.1.13.10 [place] [facility] 4.2.7.2.686 [id number] 2020-08-21 2020-08-21 Outpatient R [facility] [id number] Univers 11:30:00 11:30:00 JOSE ity [facility] 2020-08-21 2020-08-21 Outpatient R [facility] [id number] Univers 11:30:00 11:30:00 JOSE [facility] 2020-06-10 2020-06-10 Orders Doctor GEETHA 1.2.840.114 [id number] Univers 00:00:00 00:00:00 Only Unassigned, DUSTY 350.1.13.10 ity of [place] HOSPITAL 4.2.7.2.686 Sajan as [id number] [address] 2020-06-10 2020-06-10 Orders Doctor GEETHA 1.2.840.114 [id number] 00:00:00 00:00:00 Only Unassigned, DUSTY 350.1.13.10 [place] [facility] 4.2.7.2.686 [id number] [id number] 2020-06-09 2020-06-09 Outpatient R PATRICK [facility] [id number] Univers 16:00:00 16:00:00 JOSE son [facility] 2020-06-09 2020-06-09 Telemedici [facility] 1.2.840.114 [id number] Univers 10:24:29 10:54:29 ne Visit [facility] 350.1.13.10 ity of [facility] [place] [id number] [address] 2020-06-09 2020-06-09 Telemedici [facility] 1.2.840.114 [id number] 10:24:29 10:54:29 ne Visit [facility] 350.1.13.10 CLINICS 4.2.7.2.686 [id number] [facility] 2020-04-28 2020-04-28 Telephone [facility] 1.2.840.114 [id number] Univers 00:00:00 00:00:00 [facility] 350.1.13.10 i ty [place] [id number] [address] 2020-04-28 2020-04-28 GEETHA Rose 1.2.840.114 [id number] Univers 00:00:00 00:00:00 Only Jose MONTANO 350.1.13.10 it y of HOSPITAL 4.2.7.2.686 [place] as [id number] [address] 2020-04-28 2020-04-28 Telephone [facility] 1.2.840.114 [id number] 00:00:00 00:00:00 Jose Forman HEALTH 350.1.13.10 CLINICS 4.2.7.2.686 [id number] [facility] 2020-04-17 2020-04-17 Telephone [facility] 1.2.840.114 [id number] Univers 00:00:00 00:00:00 Jose Forman HEALTH 350.1.13.10 i [place] [id number] [address] 2020-04-08 2020-04-08 [facility] 1.2.701.931 [id number] Univers 00:00:00 00:00:00 Management Sheri Forman HEALTH 350.1.13.10 [place] [id number] [address] 2020-01-04 2020-01-04 [facility] [id number] Univers 16:00:00 16:40:33 JOSE son [facility] 2020-01-04 2020-01-04 Office [facility] 1.2.324.691 [id number] Univers 15:59:03 16:40:33 Visit Jose Forman [facility] 350.1.13.10 i ty [place] [id number] [address] 2019-12-16 2019-12-16 Urgent Abdoul Gaming [facility] 1.2.840.11 [id number] Univers 13:29:16 13:44:16 Care Unknown, Attending Health 350.1.13.10 ity of Surgical 4.2.7.2.686 Sajan as Specialti [id number] Ia dical es [address] [facility] 2019-12-08 2019-12-08 GEETHA Rose 1.2.840.114 [id number] Univers 00:00:00 00:00:00 Only Jose MONTANO 350.1.13.10 it y of HOSPITAL 4.2.7.2.686 [place] as [id number] [address] 2019-12-05 2019-12-05 Telephone [facility] 1.2.840.114 [id number] Univers 00:00:00 00:00:00 [facility] 350.1.13.10 i ty [place] [id number] [facility] [address] 2019-07-11 2019-07-11 Press Operator Heavy Duty 1, [facility] [place] 1.2.840.114 [id number] Univers 16:08:21 16:23:21 Visit Jose Nguyen 350.1.13.10 [place]y [place] [id number] [facility] [address] 2019-07-11 2019-07-11 Orders Doctor GEETHA 1.2.840.114 [id number] Univers 00:00:00 00:00:00 Only Unassigned, DUSTY 350.1.13.10 ity of [place] [facility] 4.2.7.2.686 Sajan as [id number] [facility] [address] 2019-06-05 2019-06-05 Office [facility] [id number] [id number] [facility] 14:03:12 14:42:13 Visit [facility] 350.1.13.10 i [place] [id number] [address] Results Test Description Test Time Test Comments Results Result Comments Source COMPREHENSIVE METABOLIC$PANEL W/EGFR-Q 2020-04-29 06:00:00 Test Item Value Reference Range Interpretation Comme nts GLUCOSE-Q (test code = 82 mg/dL 65-99 ? Fasting 2345-7) reference inter alexis UREA NITROGEN (BUN)-Q 18 mg/dL 7-25 (test code = 3094-0) CREATININE-Q (test code = 1.17 mg/dL 0.6-1.35 2160-0) eGFR NON-AFR. SPANISH-Q See_Comment [A utomated message] (test code = 15474-9) The sy stem which generated this result transmitted ref erence range: > OR = 6 0 mL/min/1.73m2. The reference range was not used to int erpret this result as normal/abnormal . eGFR -Q See_Comment [Au tomated message] (test code = 80452-0) The sy stem which generated this result [...] mal. SODIUM-Q (test code = 140 mmol/L 106-174 5062-2) POTASSIUM-Q (test code = 4.6 mmol/L 3.5-5.3 2823-3) CHLORIDE-Q (test code = 105 mmol/L 98-110 2075-0) CARBON DIOXIDE-Q (test 29 mmol/L 20-32 code = 2028-9) CALCIUM-Q (test code = 9.8 mg/dL 8.6-10.3 93854-2) PROTEIN, TOTAL-Q (test 6.6 g/dL 6.1-8.1 code = 2885-2) ALBUMIN-Q (test code = 4.7 g/dL 3.6-5.1 1751-7) GLOBULIN-Q (test code = See_Comment [Au tomated message] 92457-7) The system whic h generated this result transmitted ref erence [...] (test 1.6 mg/dL 0.2-1.2 H code = 1974-2) ALKALINE PHOSPHATASE-Q 58 U/L 36-130 (test code = 6768-6) AST-Q (test code = 1920-8) 16 U/L 10-40 ALT-Q (test code = 1742-6) 11 U/L 9-46 IAN (test code = IAN) PERFORMED BY [employer] [facility]; [address] [place] [address]; NANCY SANCHEZ MD Lab Interpretation (test Abnormal code = 46762-7) [facility] FLU A AND B (MOLECULAR)2019-12-16 21:01:00 Test Item Value Reference Range Interpretation Comments POCT INFLUENZA A (test code = neg Negative - Negative 3840) POCT INFLUENZA B (test code = neg Negative - Negative 3841) Lab Interpretation (test code = Normal 41816-8) [facility] GRP A STREP (MOLECULAR)2019-12-16 21:01:00 Test Item Value Reference Range Interpretation Comments POCT GP A STREP (test code = neg Negative - Negative 84170-3) Lab Interpretation (test code = Normal 45214-7) [facility] : 1990 [facility] Name: ASHLY CORTEZ [address] Phys: [place] [address] : 1990 Age: 29 SEX:M [phone] Exam Date: 09/24/20 Status: REG ER Acct: [id number] Loc: ERS Pt Unit #: [id number] Report #: [id number] CC: Scarlett Araujo PA-C IMAGING SERVICES REPORT Order # Category/Exam [id number] RAD/XR Finger(s) Lt Min 2 View ([id number]): . Results Exam: XR Finger(s) Lt Min [...] Hudson MD Electronically Signed Date/Time: 09/24/201851 Technologist: PIA Dictated Date/Time: 09/24/201849 Transcribed Date/Time:
[2022-05-08] MEDS ORDERED: NA CHLORIDE 0.9% 1,000 ML ONE (01:32)
[2022-05-08 01:58] LABS: Absolute Lymphocytes (CBC) 1.4 K/uL (0.7-4.9); Lymphocytes % 17.3 % (15.3-44.8); MPV 9.1 fL (7.6-11.3); RBC Red Blood Cell Count 4.93 M/uL (4.33-5.43)
[2022-05-08 02:17] LABS: Potassium 3.3 mmol/L (3.5-5.1); Troponin High Sensitivity 3.9 pg/mL (<58.9)
[2022-05-08] MEDS ORDERED: ONDANSETRON 4 MG/2 ML VIAL ONE (03:47)
--- NOTE | 2022-05-08 03:56 | ER ---
Nurse's Notes [facility] Name: Drew Shin Age: 31 yrs Sex: Male : 1990 Arrival Date: 05/08/2022 Time: 01:05 Bed 15 Private MD: Diagnosis: Essential (primary) hypertension Presentation: 05/08 01:15 Chief complaint: Patient states: "I started feeling weird and I didn't even think about tw5 checking my blood pressure but when I did it was like 200 over something. I was feeling hot and cold and just 'weird'.". Coronavirus screen: Vaccine status: Patient reports receiving the 2nd dose of the covid vaccine. [email or web address] Ebola Screen: Patient negative for fever greater than or equal to 101.5 degrees Fahrenheit, and additional compatible Ebola Virus Disease symptoms Patient denies exposure to infectious person. Patient denies travel to an Ebola-affected area in the 21 days before illness onset. Initial Sepsis Screen: Does the patient meet any 2 criteria? No. Patient's initial sepsis screen is negative. Does the patient have a suspected source of infection? No. Patient's initial sepsis screen is negative. Risk Assessment: Do you want to hurt yourself or someone else? Patient reports no desire to harm self or others. Onset of symptoms was May 08, 2022 at 00:16. 01:15 Method Of Arrival: Ambulatory tw5 01:15 Acuity: JANNETH 3 tw5 Triage Assessment: 01:19 General: Appears in no apparent distress. Behavior is calm, cooperative, appropriate tw5 for age. Pain: Denies pain. Historical: - Allergies: :19 No Known Allergies; tw5 - Home Meds: :19 Biktarvy 50-200-25 mg oral tab [Active]; dutasteride 0.5 mg oral cap [Active]; tw5 - PMHx: 01:19 HIV; - PSHx: 01:19 Tonsillectomy; tw5 - Immunization history:: Flu vaccine is up to date. - Social history:: Smoking status: Patient uses street drugs, marijuana. - Family history:: not pertinent. - Hospitalizations: : No recent hospitalization is reported. Screenin:30 Abuse screen: Denies threats or abuse. Nutritional screening: No deficits noted. ll3 Tuberculosis screening: No symptoms or risk factors identified. Fall Risk No fall in past 12 months (0 pts). No secondary diagnosis (0 pts). IV access (20 points). Ambulatory Aid- None/Bed Rest/Nurse Assist (0 pts). Gait- Normal/Bed Rest/Wheelchair (0 pts) Mental Status- Oriented to own ability (0 pts). Total Prieto Fall Scale indicates No Risk (0-24 pts). Assessment: 01:30 General: Appears uncomfortable, Behavior is calm, cooperative. Pain: Denies pain. ll3 Neuro: Level of Consciousness is awake, alert, obeys commands, Oriented to person, place, time, situation, Reports dizziness. Cardiovascular: Reports diaphoresis, lightheadedness, palpitations, Patient's skin is warm and dry. Respiratory: Respiratory effort is even, unlabored, Respiratory pattern is regular, symmetrical. Derm: Skin is pink, warm \\T\\ dry. 02:51 Reassessment: No changes from previously documented assessment. Patient and/or family ll3 updated on plan of care and expected duration. Pain level reassessed. Patient is alert, oriented x 3, equal unlabored respirations, skin warm/dry/pink. 04:22 Reassessment: No changes from previously documented assessment. Patient and/or family ll3 updated on plan of care and expected duration. Pain level reassessed. Patient is alert, oriented x 3, equal unlabored respirations, skin warm/dry/pink. Vital Signs: 01:15 BP 161 / 95; Pulse 130; Resp 18; Temp 98.7(O); Pulse Ox 99% on R/A; Weight 65.77 kg; tw5 Height 6 ft. 3 in. (190.50 cm); Pain 0/10; 02:50 Pulse 92; rn 02:51 BP 148 / 88; Pulse 93; Resp 17; Pulse Ox 98% on R/A; ll3 04:22 BP 153 / 82; Pulse 86; Resp 14; Pulse Ox 98% on R/A; ll3 01:15 Body Mass Index 18.12 (65.77 kg, 190.50 cm) tw5 ED Course: 01:05 Patient arrived in ED. es 01:07 Tremaine Dee MD is Attending Physician. rn 01:18 Triage completed. tw5 01:19 Arm band placed on left wrist. tw5 01:30 Patient has correct armband on for positive identification. Bed in low position. Call ll3 light in reach. Side rails up X 1. Client placed on continuous cardiac and pulse oximetry monitoring. NIBP monitoring applied. 01:30 No provider procedures requiring assistance completed. ll3 01:56 Initial lab(s) drawn, by me, sent to lab. EKG done, by ED staff, reviewed by Tremaine Dee MD. Inserted saline lock: 22 gauge in right antecubital area, using aseptic technique. Blood collected. 02:38 CT Head Brain wo Cont In Process Unspecified. EDMS 02:51 Shabnam Xie, RN is Primary Nurse. ll3 04:27 IV discontinued, intact, bleeding controlled, No redness/swelling at site. Pressure ll3 dressing applied. Administered Medications: 01:50 Drug: NS 0.9% 1000 ml Route: IV; Rate: 1000 ml; Site: right antecubital; ll3 04:27 Follow up: Response: No adverse reaction; IV Status: Completed infusion; IV Intake: ll3 1000ml 03:46 Drug: Zofran (Ondansetron) 4 mg Route: IVP; Site: right antecubital; ll3 04:22 Follow up: Response: No adverse reaction ll3 Medication: 01:30 VIS not applicable for this client. ll3 Intake: 04:27 IV: 1000ml; Total: 1000ml. ll3 Outcome: 03:56 Discharge ordered by . rn 04:27 Discharged to home ambulatory. ll3 04:27 Condition: stable 04:27 Discharge instructions given to patient, Instructed on discharge instructions, follow up and referral plans. Demonstrated understanding of instructions, follow-up care. 04:27 Patient left the ED. ll3 Signatures: Dispatcher [employer] EDCT Bonnie Rutherford Roman, MD MD rn Wood, Tiffany tw5 Shabnam Xie, MIRTA RN ll3 Corrections: (The following items were deleted from the chart) 01:19 01:15 BP 161 / 95; Pulse 110bpm; Resp 18bpm; Pulse Ox 99% RA; Temp 98.7F Oral; tw5 tw5
--- NOTE | 2022-05-08 03:56 | EDPHYS ---
Physician Documentation [facility] Name: Drew Shin Age: 31 yrs Sex: Male : 1990 Arrival Date: 05/08/2022 Time: 01:05 Bed 15 Private MD: ED Physician Tremaine Dee HPI: 05/08 02:59 This 31 yrs old Male presents to ER via Ambulatory with complaints of High Blood rn Pressure. 02:59 The patient has elevated blood pressure and discovered this at home. Onset: The rn symptoms/episode began/occurred yesterday. Modifying factors: The symptoms are aggravated by nothing. 02:59 Associated signs and symptoms: Pertinent positives: dizziness, headache, Pertinent rn negatives: dyspnea, visual changes, vomiting. Severity of symptoms: At its worst the blood pressure was severe, in the emergency department the blood pressure is improved. The patient has experienced similar episodes in the past, but today's symptoms are worse. The patient has not recently seen a physician. Pt reports high blood pressure, was feeling headache, dizziness, lightheaded, tingling all over, checked BP and was 200s/100s, does not take medication for HTN but does have family hx. Denies stimulant or drugs. No chest pain or sob. Reports feeling better already. No fever. Does not feel ill. Denies focal neuro complaint. . Historical: - Allergies: :19 No Known Allergies; tw5 - Home Meds: :19 Biktarvy 50-200-25 mg oral tab [Active]; dutasteride 0.5 mg oral cap [Active]; - PMHx: :19 HIV; - PSHx: 01:19 Tonsillectomy; - Immunization history:: Flu vaccine is up to date. - Social history:: Smoking status: Patient uses street drugs, marijuana. - Family history:: not pertinent. - Hospitalizations: : No recent hospitalization is reported. ROS: 02:59 Constitutional: Negative for fever, chills, and weight loss, Eyes: Negative for injury, rn pain, redness, and discharge, Neck: Negative for injury, pain, and swelling, Cardiovascular: Negative for chest pain, palpitations, and edema, Respiratory: Negative for shortness of breath, cough, wheezing, and pleuritic chest pain, Abdomen/GI: Negative for abdominal pain, nausea, vomiting, diarrhea, and constipation, Back: Negative for injury and pain, MS/Extremity: Negative for injury and deformity, Skin: Negative for injury, rash, and discoloration, Neuro: Negative for weakness, and seizure. Exam: 02:59 Constitutional: This is a well developed, well nourished patient who is awake, alert, rn appears anxious Head/Face: Normocephalic, atraumatic. Eyes: Pupils equal round and reactive to light, extra-ocular motions intact. Neck: Trachea midline, no Meningismus. Cardiovascular: Regular rate and rhythm. No pulse deficits. Respiratory: No increased work of breathing, no retractions or nasal flaring. Abdomen/GI: Soft, non-tender Skin: Warm, dry MS/ Extremity: Pulses equal, no cyanosis. Neuro: Awake and alert, GCS 15, oriented to person, place, time, and situation. Cranial nerves II-XII grossly intact. Motor strength 5/5 in all extremities. Sensory grossly intact. Cerebellar exam normal. Vital Signs: 01:15 BP 161 / 95; Pulse 130; Resp 18; Temp 98.7(O); Pulse Ox 99% on R/A; Weight 65.77 kg; tw5 Height 6 ft. 3 in. (190.50 cm); Pain 0/10; 02:50 Pulse 92; rn 02:51 BP 148 / 88; Pulse 93; Resp 17; Pulse Ox 98% on R/A; ll3 04:22 BP 153 / 82; Pulse 86; Resp 14; Pulse Ox 98% on R/A; ll3 01:15 Body Mass Index 18.12 (65.77 kg, 190.50 cm) tw5 MDM: 01:07 Patient medically screened. rn 03:54 Differential diagnosis: hypertensive crisis, Malignant HTN, intracerebral hemorrhage, rn hyperventilation. Data reviewed: vital signs, nurses notes, lab test result(s), EKG, radiologic studies, CT scan, and as a result, I will discharge patient. Counseling: I had a detailed discussion with the patient and/or guardian regarding: the historical points, exam findings, and any diagnostic results supporting the discharge/admit diagnosis, lab results, radiology results, the need for outpatient follow up, to return to the emergency department if symptoms worsen or persist or if there are any questions or concerns that arise at home. Counseling: I had a detailed discussion with the patient and/or guardian regarding: the presence of at least one elevated blood pressure reading (>120/80) during this emergency department visit. Response to treatment: the patient's symptoms have markedly improved after treatment, and as a result, I will discharge patient. Special discussion: I have referred the patient to see his PCP for further evaluation of high blood pressure. I discussed with the patient/guardian in detail that at this point there is no indication for admission to the hospital. It is understood, however, that if the symptoms persist or worsen the patient needs to return immediately for re-evaluation. Special discussion: Based on the history and exam findings, there is no indication for further emergent testing or inpatient evaluation. I discussed with the patient/guardian the need to see the aeronautical research engineer for further evaluation of the symptoms. I discussed with the patient/guardian the need to see the primary care provider for further evaluation of the symptoms. ED course: No acute findings indicating end organ damage with his HTN, back to baseline, stable vitals, no HTN meds given and BP down to 148/88, normal neuro exam. Will dc home with BP journal and pcp f/u for HTN management. Return precautions given and understood.. 05/08 01:20 Order name: CBC with Diff; Complete Time: 02:50 rn 05/08 01:20 Order name: Basic Metabolic Panel; Complete Time: 02:50 05/08 01:20 Order name: CT Head Brain wo Cont rn 05/08 01:20 Order name: Troponin High Sensitivity; Complete Time: 02:50 05/08 01:20 Order name: IV Start; Complete Time: 01:55 rn 05/08 01:20 Order name: EKG; Complete Time: 01:21 rn 05/08 01:20 Order name: EKG - Nurse/Tech; Complete Time: 01:40 rn 05/08 01:20 Order name: Cardiac monitoring; Complete Time: 01:40 rn 05/08 01:20 Order name: O2 Sat Monitoring; Complete Time: 01:40 rn Administered Medications: 01:50 Drug: NS 0.9% 1000 ml Route: IV; Rate: 1000 ml; Site: right antecubital; ll3 04:27 Follow up: Response: No adverse reaction; IV Status: Completed infusion; IV Intake: ll3 1000ml 03:46 Drug: Zofran (Ondansetron) 4 mg Route: IVP; Site: right antecubital; ll3 04:22 Follow up: Response: No adverse reaction ll3 Disposition Summary: 05/08/22 03:56 Discharge Ordered Location: Home rn Problem: new rn Symptoms: have improved rn Condition: Stable rn Diagnosis - Essential (primary) hypertension rn Followup: rn - With: Private Physician - When: As needed - Reason: Recheck today's complaints, Re-evaluation by your physician Discharge Instructions: - Discharge Summary Sheet rn - Hypertension, Adult rn - Managing Your Hypertension rn Forms: - Medication Reconciliation Form rn - Thank You Letter rn - Antibiotic pattern developer - Prescription Opioid Use rn Signatures: Dispatcher [employer] EDTremaine Ocampo MD MD rn Wood, Tiffany tw5 Shabnam Xie RN RN ll3 Alicia Ku PA PA sb3
[2022-05-08 04:33] VITALS: TEMP 98.7
[2022-05-08 04:36] VITALS: O2SAT 98
[2022-05-08 04:37] VITALS: BP 153/82
--- NOTE | 2022-05-08 19:33 | RAD REPORT ---
EXAM DESCRIPTION: CT Head Without Intravenous Contrast CLINICAL HISTORY: The patient is 31 years old and is Male; Hypertensive emergency TECHNIQUE: Axial computed tomography images of the head/brain without intravenous contrast. Sagitt al and coronal reformatted images were created and reviewed. This CT exam was performed using one o r more of the following dose reduction techniques: automated exposure control, adjustment of the mA and/or kV according to patient size, and/or use of iterative reconstruction technique. COMPARISON: No relevant prior studies available. FINDINGS: Brain: Unremarkable. No hemorrhage. No significant white matter disease. No edema. Ventricles: Unremarkable. No ventriculomegaly. Bones/joints: Unremarkable. No acute fracture. Soft tissues: Unremarkable. Sinuses: Unremarkable as visualized. Mastoid air cells: Unremarkable as visualized. No mastoid effusion. IMPRESSION: No acute intracranial abnormality. Electronically signed by: Duke Gonzalez MD 05/08/2022 3:34 AM CDT Due to temporary technical issues with the PACS/Fluency reporting system, reports are being signed by the in house radiologists without review as a courtesy to insure prompt reporting. The interpreting radiologist is fully responsible for the content of the report.
== END 2022-05-08 04:27 | disposition home or self-care (01) ==
LOC: ER 01:04
DX: I10 Essential (primary) hypertension (principal); B20 Human immunodeficiency virus [HIV] disease; F12.90 Cannabis use, unspecified, uncomplicated
CPT/HCPCS: 96361; 85025; 80048; 36415; 84484; 70450; 96374; 99284; J7030; J2405